=== PATIENT | male | born 1935 | race Caucasian/White ===

== ENCOUNTER → 2020-04-04 10:06 | Outpatient (BNVA) | payer MEDICARE, SELFPAY | PROVIDERS: PCP Internal Medicine Medical Oncology; Referring Provider Internal Medicine Medical Oncology; Visit Provider Internal Medicine Medical Oncology | DX: I48.20 Chronic atrial fibrillation, unspecified (principal); Z51.81 Encounter for therapeutic drug level monitoring; Z79.01 Long term (current) use of anticoagulants | CPT/HCPCS: 85610; 99211 ==

== ENCOUNTER → 2020-05-02 09:49 | Outpatient (BNVA) | payer MEDICARE, SELFPAY | PROVIDERS: PCP Internal Medicine Medical Oncology; Visit Provider Internal Medicine | DX: I48.20 Chronic atrial fibrillation, unspecified (principal); Z51.81 Encounter for therapeutic drug level monitoring; Z79.01 Long term (current) use of anticoagulants | CPT/HCPCS: 85610; 99211 ==

== ENCOUNTER → 2020-06-06 10:01 | Outpatient (BNVA) | payer MEDICARE, SELFPAY | PROVIDERS: PCP Internal Medicine Medical Oncology; Visit Provider Internal Medicine | DX: I48.20 Chronic atrial fibrillation, unspecified (principal); Z51.81 Encounter for therapeutic drug level monitoring; Z79.01 Long term (current) use of anticoagulants | CPT/HCPCS: 85610; 99211 ==

== ENCOUNTER → 2020-07-04 09:50 | Outpatient (BNVA) | payer MEDICARE, SELFPAY | PROVIDERS: PCP Internal Medicine Medical Oncology; Visit Provider Internal Medicine | DX: I48.20 Chronic atrial fibrillation, unspecified (principal); Z51.81 Encounter for therapeutic drug level monitoring; Z79.01 Long term (current) use of anticoagulants | CPT/HCPCS: 85610; 99211 ==

== ENCOUNTER → 2020-07-18 09:48 | Outpatient (BNVA) | payer MEDICARE, SELFPAY | PROVIDERS: PCP Internal Medicine Medical Oncology; Visit Provider Internal Medicine | DX: I48.20 Chronic atrial fibrillation, unspecified (principal); Z51.81 Encounter for therapeutic drug level monitoring; Z79.01 Long term (current) use of anticoagulants | CPT/HCPCS: 85610; 99211 ==

== ENCOUNTER → 2020-08-15 09:46 | Outpatient (BNVA) | payer MEDICARE, SELFPAY | PROVIDERS: PCP Internal Medicine Medical Oncology; Visit Provider Internal Medicine | DX: I48.20 Chronic atrial fibrillation, unspecified (principal); Z51.81 Encounter for therapeutic drug level monitoring; Z79.01 Long term (current) use of anticoagulants | CPT/HCPCS: 85610; 99211 ==

== ENCOUNTER → 2020-09-12 09:36 | Outpatient (BNVA) | payer MEDICARE, SELFPAY | PROVIDERS: PCP Internal Medicine Medical Oncology; Visit Provider Internal Medicine | DX: I48.20 Chronic atrial fibrillation, unspecified (principal); Z51.81 Encounter for therapeutic drug level monitoring; Z79.01 Long term (current) use of anticoagulants | CPT/HCPCS: 85610; 99211 ==

== ENCOUNTER → 2020-10-10 09:46 | Outpatient (BNVA) | payer MEDICARE, SELFPAY | PROVIDERS: PCP Internal Medicine Medical Oncology; Visit Provider Internal Medicine | DX: I48.20 Chronic atrial fibrillation, unspecified (principal); Z79.01 Long term (current) use of anticoagulants; Z51.81 Encounter for therapeutic drug level monitoring | CPT/HCPCS: 85610; 99211 ==

== ENCOUNTER → 2020-11-04 09:46 | Outpatient (REF) | payer MEDICARE, SELFPAY ==
--- NOTE | ~2020-11-04 | NM_ITS ---
EXAMINATION: NM BONE SCAN OF THE WHOLE BODY CLINICAL INFORMATION: Malignant neoplasm of prostate CA. Increased PSA. COMPARISON: Bone scan 12/04/2019 TECHNIQUE: Multiple gamma scintillation camera images of the whole body were performed 3 hours following the intravenous administration of 32 mCi Tc-99m MDP. FINDINGS: In the head, minimal focal activity seen in anterior right and left mandible likely related to dental disease. No additional abnormal activity seen in the skeleton neck. In the thoracic cage and upper extremities, unremarkable. In the spine, there is minimal focal activity seen in right T11-T12 facet joint, likely degenerative changes. No additional abnormal activity seen. There is minimal activity seen along the superior endplates of L5 and L3 vertebrae, likely endplate fractures or degenerative changes. In the pelvis, no abnormal activity seen. In the lower extremities, there are bilateral photopenic defects in the hip joints from hip prosthesis. There is minimal focal activity seen in the left medial and minimal right medial knee compartments, likely arthritis. No other definite bony abnormalities are noted. The urinary bladder and faint visualization of both kidneys are noted. [place] bone scan whole body IMPRESSION: No abnormal activity seen to suspect any metastatic bony process. Mild degenerative arthritic changes right T11-T12 facet joint and superior endplates of L5 and L3 vertebrae likely related to degenerative changes or mild compression fractures. These are stable to the previous bone scan 12/04/2019.
== END ==
LOC: HO.NUCMED 09:46
PROVIDERS: PCP Internal Medicine Medical Oncology; Visit Provider Internal Medicine Medical Oncology
DX: C61 Malignant neoplasm of prostate (principal); R97.20 Elevated prostate specific antigen [PSA]
CPT/HCPCS: 78306; A9503

== ENCOUNTER → 2020-11-07 09:46 | Outpatient (BNVA) | payer MEDICARE, SELFPAY | PROVIDERS: PCP Internal Medicine Medical Oncology; Visit Provider Internal Medicine | DX: I48.20 Chronic atrial fibrillation, unspecified (principal); Z79.01 Long term (current) use of anticoagulants; Z51.81 Encounter for therapeutic drug level monitoring | CPT/HCPCS: 85610; 99211 ==

== ENCOUNTER → 2020-11-28 10:06 | Outpatient (BNVA) | payer MEDICARE, SELFPAY | PROVIDERS: PCP Internal Medicine Medical Oncology; Visit Provider Internal Medicine | DX: I48.20 Chronic atrial fibrillation, unspecified (principal); Z51.81 Encounter for therapeutic drug level monitoring; Z79.01 Long term (current) use of anticoagulants | CPT/HCPCS: 85610; 99211 ==

== ENCOUNTER → 2020-12-26 09:41 | Outpatient (BNVA) | payer MEDICARE, SELFPAY | PROVIDERS: PCP Internal Medicine Medical Oncology; Visit Provider Internal Medicine | DX: I48.20 Chronic atrial fibrillation, unspecified (principal); Z51.81 Encounter for therapeutic drug level monitoring; Z79.01 Long term (current) use of anticoagulants | CPT/HCPCS: 85610; 99211 ==

== ENCOUNTER → 2021-01-23 09:44 | Outpatient (BNVA) | payer MEDICARE, SELFPAY | PROVIDERS: PCP Internal Medicine Medical Oncology; Visit Provider Internal Medicine | DX: I48.20 Chronic atrial fibrillation, unspecified (principal); Z51.81 Encounter for therapeutic drug level monitoring; Z79.01 Long term (current) use of anticoagulants | CPT/HCPCS: 85610; 99211 ==

== ENCOUNTER → 2021-02-20 09:44 | Outpatient (BNVA) | payer MEDICARE, SELFPAY | PROVIDERS: PCP Internal Medicine Medical Oncology; Visit Provider Internal Medicine | DX: I48.20 Chronic atrial fibrillation, unspecified (principal); Z51.81 Encounter for therapeutic drug level monitoring; Z79.01 Long term (current) use of anticoagulants | CPT/HCPCS: 85610; 99211 ==

== ENCOUNTER → 2021-03-20 09:45 | Outpatient (BNVA) | payer MEDICARE, SELFPAY | PROVIDERS: PCP Internal Medicine Medical Oncology; Visit Provider Internal Medicine | DX: I48.20 Chronic atrial fibrillation, unspecified (principal); Z51.81 Encounter for therapeutic drug level monitoring; Z79.01 Long term (current) use of anticoagulants | CPT/HCPCS: 85610; 99211 ==

== ENCOUNTER → 2021-04-17 09:57 | Outpatient (BNVA) | payer MEDICARE, SELFPAY | PROVIDERS: PCP Internal Medicine Medical Oncology; Visit Provider Internal Medicine | DX: I48.20 Chronic atrial fibrillation, unspecified (principal); Z51.81 Encounter for therapeutic drug level monitoring; Z79.01 Long term (current) use of anticoagulants | CPT/HCPCS: 85610; 99211 ==

== ENCOUNTER → 2021-05-15 09:56 | Outpatient (BNVA) | payer MEDICARE, SELFPAY | PROVIDERS: PCP Internal Medicine Medical Oncology; Visit Provider Internal Medicine | DX: I48.20 Chronic atrial fibrillation, unspecified (principal); Z51.81 Encounter for therapeutic drug level monitoring; Z79.01 Long term (current) use of anticoagulants | CPT/HCPCS: 85610; 99211 ==

== ENCOUNTER → 2021-06-12 09:54 | Outpatient (BNVA) | payer MEDICARE, SELFPAY | PROVIDERS: PCP Internal Medicine Medical Oncology; Visit Provider Internal Medicine | DX: I48.20 Chronic atrial fibrillation, unspecified (principal); Z51.81 Encounter for therapeutic drug level monitoring; Z79.01 Long term (current) use of anticoagulants | CPT/HCPCS: 85610; 99211 ==

== ENCOUNTER → 2021-07-10 09:49 | Outpatient (BNVA) | payer MEDICARE, SELFPAY | PROVIDERS: PCP Internal Medicine Medical Oncology; Visit Provider Internal Medicine | DX: I48.20 Chronic atrial fibrillation, unspecified (principal); Z51.81 Encounter for therapeutic drug level monitoring; Z79.01 Long term (current) use of anticoagulants | CPT/HCPCS: 85610; 99211 ==

== ENCOUNTER → 2021-08-07 09:47 | Outpatient (BNVA) | payer MEDICARE, SELFPAY | PROVIDERS: PCP Internal Medicine Medical Oncology; Visit Provider Internal Medicine | DX: I48.20 Chronic atrial fibrillation, unspecified (principal); Z51.81 Encounter for therapeutic drug level monitoring; Z79.01 Long term (current) use of anticoagulants | CPT/HCPCS: 85610; 99211 ==

== ENCOUNTER → 2021-09-04 09:49 | Outpatient (BNVA) | payer MEDICARE, SELFPAY | PROVIDERS: PCP Internal Medicine Medical Oncology; Visit Provider Internal Medicine | DX: I48.20 Chronic atrial fibrillation, unspecified (principal); Z51.81 Encounter for therapeutic drug level monitoring; Z79.01 Long term (current) use of anticoagulants | CPT/HCPCS: 85610; 99211 ==

== ENCOUNTER → 2021-10-09 09:56 | Outpatient (BNVA) | payer MEDICARE, SELFPAY | PROVIDERS: PCP Internal Medicine Medical Oncology; Visit Provider Internal Medicine | DX: I48.20 Chronic atrial fibrillation, unspecified (principal); Z51.81 Encounter for therapeutic drug level monitoring; Z79.01 Long term (current) use of anticoagulants | CPT/HCPCS: 85610; 99211 ==

== ENCOUNTER → 2021-11-06 09:57 | Outpatient (BNVA) | payer MEDICARE, SELFPAY | PROVIDERS: PCP Internal Medicine Medical Oncology; Visit Provider Internal Medicine | DX: I48.20 Chronic atrial fibrillation, unspecified (principal); Z79.01 Long term (current) use of anticoagulants; Z51.81 Encounter for therapeutic drug level monitoring | CPT/HCPCS: 85610; 99211 ==

== ENCOUNTER → 2021-11-10 10:40 | Outpatient (REF) | payer MEDICARE, SELFPAY ==
--- NOTE | ~2021-11-10 | NM_ITS ---
EXAMINATION: NM BONE SCAN OF THE WHOLE BODY CLINICAL INFORMATION: Prostate cancer. COMPARISON: The previous bone scan dated 11/04/2020 is available for comparison. No recent radiographs are available for comparison. TECHNIQUE: Multiple gamma scintillation camera images of the whole body were performed 2.75 hours following the intravenous administration of 32 mCi Tc-99m MDP. FINDINGS: In the head, no significant abnormalities are present. In the thoracic cage and upper extremities, there is minimally increased activity in the sternoclavicular joints bilaterally. A small photopenic defect overlying the anterolateral aspect of the left second interspace is noted probably from a pacemaker or other hardware. In the spine, there is minimally increased activity in the lumbar spine at the L2-L3 level and L5-S1 level involving the full width of the spine at these levels. There is minimally increased activity in the right costovertebral junction of T12. In the pelvis, no significant abnormalities are present. 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 There is minimally increased activity just barely visible adjacent to the femoral stems bilaterally without a suspicious focal component. There is mildly increased activity diffusely in both knees, more prominently on the right. There is mildly increased activity in the mid left foot. No other definite bony abnormalities are noted. The urinary bladder and faint visualization of both kidneys are noted. The right kidney is significantly smaller in size than the left. Compared to the previous study dated 11/04/2020, the abnormalities in the right knee are new and there are new abnormalities in the patellar compartment of the left knee. The remainder the scan is not significantly changed. [place] bone scan whole body IMPRESSION: A few mild nonspecific abnormalities are noted as described above and these are all likely arthritic or traumatic in etiology. None of these abnormalities is strongly suspicious for metastatic disease.
== END ==
LOC: HO.NUCMED 10:40
PROVIDERS: Visit Provider Internal Medicine Medical Oncology
DX: N64.0 Fissure and fistula of nipple (principal); C61 Malignant neoplasm of prostate
CPT/HCPCS: 78306; A9503

== ENCOUNTER → 2021-12-04 09:50 | Outpatient (BNVA) | payer MEDICARE, SELFPAY | PROVIDERS: PCP Internal Medicine Medical Oncology; Visit Provider Internal Medicine | DX: I48.20 Chronic atrial fibrillation, unspecified (principal); Z79.01 Long term (current) use of anticoagulants; Z51.81 Encounter for therapeutic drug level monitoring | CPT/HCPCS: 85610; 99211 ==

== ENCOUNTER → 2022-01-08 10:04 | Outpatient (BNVA) | payer MEDICARE, SELFPAY | PROVIDERS: PCP Internal Medicine Medical Oncology; Visit Provider Internal Medicine | DX: I48.20 Chronic atrial fibrillation, unspecified (principal); Z51.81 Encounter for therapeutic drug level monitoring; Z79.01 Long term (current) use of anticoagulants | CPT/HCPCS: 85610; 99211 ==

== ENCOUNTER → 2022-02-05 09:45 | Outpatient (BNVA) | payer MEDICARE, SELFPAY | PROVIDERS: PCP Internal Medicine Medical Oncology; Visit Provider Internal Medicine | DX: I48.20 Chronic atrial fibrillation, unspecified (principal); Z79.01 Long term (current) use of anticoagulants; Z51.81 Encounter for therapeutic drug level monitoring | CPT/HCPCS: 85610; 99211 ==

== ENCOUNTER → 2022-03-05 09:45 | Outpatient (BNVA) | payer MEDICARE, SELFPAY | PROVIDERS: PCP Internal Medicine Medical Oncology; Visit Provider Internal Medicine | DX: I48.20 Chronic atrial fibrillation, unspecified (principal); Z51.81 Encounter for therapeutic drug level monitoring; Z79.01 Long term (current) use of anticoagulants | CPT/HCPCS: 85610; 99211 ==

== ENCOUNTER → 2022-04-09 09:52 | Outpatient (BNVA) | payer MEDICARE, SELFPAY | PROVIDERS: PCP Internal Medicine Medical Oncology; Visit Provider Internal Medicine | DX: I48.20 Chronic atrial fibrillation, unspecified (principal); Z51.81 Encounter for therapeutic drug level monitoring; Z79.01 Long term (current) use of anticoagulants | CPT/HCPCS: 85610; 99211 ==

== ENCOUNTER → 2022-05-07 09:41 | Outpatient (BNVA) | payer MEDICARE, SELFPAY | PROVIDERS: PCP Internal Medicine Medical Oncology; Visit Provider Internal Medicine | DX: I48.20 Chronic atrial fibrillation, unspecified (principal); Z79.01 Long term (current) use of anticoagulants; Z51.81 Encounter for therapeutic drug level monitoring | CPT/HCPCS: 85610; 99211 ==

== ENCOUNTER → 2022-05-27 10:19 | Outpatient (BNVA) | payer MEDICARE, SELFPAY | PROVIDERS: PCP Internal Medicine Medical Oncology; Visit Provider Internal Medicine | DX: I48.20 Chronic atrial fibrillation, unspecified (principal); Z79.01 Long term (current) use of anticoagulants; Z51.81 Encounter for therapeutic drug level monitoring | CPT/HCPCS: 85610; 99211 ==

== ENCOUNTER → 2022-06-25 09:51 | Outpatient (BNVA) | payer MEDICARE, SELFPAY | PROVIDERS: PCP Internal Medicine Medical Oncology; Visit Provider Internal Medicine | DX: I48.20 Chronic atrial fibrillation, unspecified (principal); Z79.01 Long term (current) use of anticoagulants; Z51.81 Encounter for therapeutic drug level monitoring | CPT/HCPCS: 85610; 99211 ==

== ENCOUNTER → 2022-07-07 10:51 | Outpatient (REF) | payer MEDICARE, SELFPAY ==
--- NOTE | ~2022-07-07 | NM_ITS ---
EXAMINATION: NM BONE SCAN OF THE WHOLE BODY CLINICAL INFORMATION: Malignant neoplasm of prostate. COMPARISON: Several previous bone scans are available for comparison, the most recent dated 11/10/2021. No recent radiographs are available for comparison. TECHNIQUE: Multiple gamma scintillation camera images of the whole body were performed 3 hours following the intravenous administration of 25 mCi Tc-99m MDP. FINDINGS: In the head, no significant abnormalities are present. In the thoracic cage and upper extremities, there is minimally increased activity in the sternoclavicular joints bilaterally. There are also mild foci of increased activity in the glenohumeral articulations bilaterally and in the lateral subacromial region of the right humeral head, all likely degenerative or arthritic. An attenuation artifact overlying the anterolateral aspect of the left second interspace is likely due to to a pacemaker. In the spine, there is mildly increased activity anteriorly in the lower cervical spine. There are additional foci of mildly increased activity across the L3 and L5 vertebra. In the pelvis, no significant abnormalities are present. In the lower extremities, photopenic defects from bilateral well-healed total hip prostheses are noted. There is minimally increased activity present adjacent to the femoral stem of the right hip prosthesis. There is a mild diffuse increase in activity in both knees and there foci of mildly increased activity in the mid left foot. No other definite bony abnormalities are noted. The urinary bladder and faint visualization of both kidneys are noted. Compared to the previous bone scan dated 11/10/2021, there has not been a significant change. [place] bone scan whole body IMPRESSION: A few stable mild nonspecific abnormalities are noted as described above and these are all likely arthritic or traumatic in etiology. None of these abnormalities is strongly suspicious for metastatic disease.
== END ==
LOC: HO.NUCMED 10:51
PROVIDERS: Visit Provider Internal Medicine Medical Oncology
DX: C61 Malignant neoplasm of prostate (principal)
CPT/HCPCS: 78306; A9503

== ENCOUNTER → 2022-07-23 09:37 | Outpatient (BNVA) | payer MEDICARE, SELFPAY | PROVIDERS: PCP Internal Medicine Medical Oncology; Visit Provider Internal Medicine | DX: I48.20 Chronic atrial fibrillation, unspecified (principal); Z79.01 Long term (current) use of anticoagulants; Z51.81 Encounter for therapeutic drug level monitoring | CPT/HCPCS: 85610; 99211 ==

== ENCOUNTER → 2022-08-20 09:47 | Outpatient (BNVA) | payer MEDICARE, SELFPAY | PROVIDERS: PCP Internal Medicine Medical Oncology; Visit Provider Internal Medicine | DX: I48.20 Chronic atrial fibrillation, unspecified (principal); Z51.81 Encounter for therapeutic drug level monitoring; Z79.01 Long term (current) use of anticoagulants | CPT/HCPCS: 85610; 99211 ==

== ENCOUNTER → 2022-09-03 09:49 | Outpatient (BNVA) | payer MEDICARE, SELFPAY | PROVIDERS: PCP Internal Medicine Medical Oncology; Visit Provider Internal Medicine | DX: I48.20 Chronic atrial fibrillation, unspecified (principal); Z79.01 Long term (current) use of anticoagulants; Z51.81 Encounter for therapeutic drug level monitoring | CPT/HCPCS: 85610; 99211 ==

== ENCOUNTER → 2022-09-17 09:46 | Outpatient (BNVA) | payer MEDICARE, SELFPAY | PROVIDERS: PCP Internal Medicine Medical Oncology; Visit Provider Internal Medicine | DX: I48.20 Chronic atrial fibrillation, unspecified (principal); Z79.01 Long term (current) use of anticoagulants; Z51.81 Encounter for therapeutic drug level monitoring | CPT/HCPCS: 85610; 99211 ==

== ENCOUNTER → 2022-10-08 09:51 | Outpatient (BNVA) | payer MEDICARE, SELFPAY | PROVIDERS: PCP Internal Medicine Medical Oncology; Visit Provider Internal Medicine | DX: I48.20 Chronic atrial fibrillation, unspecified (principal); Z79.01 Long term (current) use of anticoagulants; Z51.81 Encounter for therapeutic drug level monitoring | CPT/HCPCS: 85610; 99211 ==

== ENCOUNTER 2022-11-05 09:39 | Outpatient (REF) | payer MEDICARE, SELFPAY ==
[2022-11-05 10:32] LABS: Prothrombin Time 63.2 SEC (10.0-13.1)
[2022-11-05 10:35] LABS: INTERNATIONAL NORM RATIO 5.1 (0.9-1.1)
== END 2022-11-05 09:40 | disposition home or self-care (01) ==
LOC: HO.LAB 09:39
PROVIDERS: PCP Internal Medicine Medical Oncology; Visit Provider Internal Medicine
DX: I48.20 Chronic atrial fibrillation, unspecified (principal); Z51.81 Encounter for therapeutic drug level monitoring; Z79.01 Long term (current) use of anticoagulants
CPT/HCPCS: 36415; 85610; 99212

== ENCOUNTER → 2022-11-09 10:09 | Outpatient (BNVA) | payer MEDICARE, SELFPAY | PROVIDERS: PCP Internal Medicine Medical Oncology; Visit Provider Internal Medicine | DX: I48.20 Chronic atrial fibrillation, unspecified (principal); Z79.01 Long term (current) use of anticoagulants; Z51.81 Encounter for therapeutic drug level monitoring | CPT/HCPCS: 85610; 99211 ==

== ENCOUNTER → 2022-11-19 10:05 | Outpatient (BNVA) | payer MEDICARE, SELFPAY | PROVIDERS: PCP Internal Medicine Medical Oncology; Visit Provider Internal Medicine | DX: I48.20 Chronic atrial fibrillation, unspecified (principal); Z79.01 Long term (current) use of anticoagulants; Z51.81 Encounter for therapeutic drug level monitoring | CPT/HCPCS: 85610; 99211 ==

== ENCOUNTER → 2022-12-03 09:47 | Outpatient (BNVA) | payer MEDICARE, SELFPAY | PROVIDERS: PCP Internal Medicine Medical Oncology; Visit Provider Internal Medicine | DX: I48.20 Chronic atrial fibrillation, unspecified (principal); Z79.01 Long term (current) use of anticoagulants; Z51.81 Encounter for therapeutic drug level monitoring | CPT/HCPCS: 85610; 99211 ==

== ENCOUNTER → 2022-12-17 09:47 | Outpatient (BNVA) | payer MEDICARE, SELFPAY | PROVIDERS: PCP Internal Medicine Medical Oncology; Visit Provider Internal Medicine | DX: I48.20 Chronic atrial fibrillation, unspecified (principal); Z79.01 Long term (current) use of anticoagulants; Z51.81 Encounter for therapeutic drug level monitoring | CPT/HCPCS: 85610; 99211 ==

== ENCOUNTER → 2023-01-07 09:43 | Outpatient (BNVA) | payer MEDICARE, SELFPAY | PROVIDERS: PCP Internal Medicine Medical Oncology; Visit Provider Internal Medicine | DX: I48.20 Chronic atrial fibrillation, unspecified (principal); Z79.01 Long term (current) use of anticoagulants; Z51.81 Encounter for therapeutic drug level monitoring | CPT/HCPCS: 85610; 99211 ==

== ENCOUNTER 2023-02-04 09:55 | Outpatient (AMB) | payer MEDICARE, SELFPAY ==
--- NOTE | 2023-02-04 09:59 | MHC.OFFVISCO ---
Intake Intake Visit Reasons: Anticoagulation Allergies No Known Allergies Allergy (Verified 02/04/23 09:55) Medication List - Last Reconciled 02/04/23 by Susana Pantoja RN amoxicillin 2,000 mg PO aspirin 81 mg PO DAILY finasteride 5 mg PO DAILY furosemide 20 mg PO DAILY leuprolide (3 month) (Eligard) 22.5 mg subcut [id number] losartan 25 mg PO DAILY metoprolol succinate ER 75 mg PO DAILY omeprazole 20 mg PO DAILY potassium chloride ER 10 mEq PO DAILY pravastatin 10 mg PO DAILY warfarin 2.5 mg See Protocol PO DAILY Nursing Note INR: 2.1-in therapeutic range Medications and supplements reviewed- no changes No changes in health, diet, medications, or supplements, Denies any signs and symptoms of bleeding or bruising or clotting. Bleeding, bruising, clotting discussed Nutritional guidance given Dose: 2.5mg x 7 F/U INR: 4 weeks Patient verbalizes understanding of instructions given Coding Level of Care Code Est Patient Level 1 Diagnoses Current use of anticoagulant therapy Z79.01 Assessment & Plan Assessment & Plan (1) Current use of anticoagulant therapy: Code(s): Z79.01 - jail (current) use of anticoagulants Category: Medical
[2023-02-04 10:00] LABS: Prothrombin Time Whole Bld POC 25.2 sec (11.1-13.5); ~PT, ~INR - Anti Coag Clinic 2.1 (0.9-1.1)
== END 2023-02-04 10:24 | disposition home or self-care (01) ==
LOC: HO.ACS 09:55
PROVIDERS: PCP Internal Medicine Medical Oncology; Visit Provider Internal Medicine
DX: Z79.01 Long term (current) use of anticoagulants (principal)

== ENCOUNTER → 2023-02-04 09:55 | Outpatient (BNVA) | payer MEDICARE, SELFPAY | PROVIDERS: PCP Internal Medicine Medical Oncology; Visit Provider Internal Medicine | DX: I48.20 Chronic atrial fibrillation, unspecified (principal); Z79.01 Long term (current) use of anticoagulants; Z51.81 Encounter for therapeutic drug level monitoring | CPT/HCPCS: 85610; 99211 ==

== ENCOUNTER 2023-03-04 09:39 | Outpatient (AMB) | payer MEDICARE, SELFPAY ==
--- NOTE | 2023-03-04 09:50 | MHC.OFFVISCO ---
Intake Intake Visit Reasons: Anticoagulation Allergies No Known Allergies Allergy (Verified 03/04/23 09:46) Medication List - Last Reconciled 03/04/23 by Susana Pantoja RN amoxicillin 2,000 mg PO aspirin 81 mg PO DAILY finasteride 5 mg PO DAILY furosemide 20 mg PO DAILY leuprolide (3 month) (Eligard) 22.5 mg subcut [id number] losartan 25 mg PO DAILY metoprolol succinate ER 75 mg PO DAILY omeprazole 20 mg PO DAILY potassium chloride ER 10 mEq PO DAILY pravastatin 10 mg PO DAILY warfarin 2.5 mg See Protocol PO DAILY Nursing Note INR: 2.3- in therapeutic range Medications and supplements reviewed- no changes No changes in health, diet, medications, or supplements, Denies any signs and symptoms of bleeding or bruising or clotting. 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
[2023-03-04 09:51] LABS: Prothrombin Time Whole Bld POC 27.4 sec (11.1-13.5); ~PT, ~INR - Anti Coag Clinic 2.3 (0.9-1.1)
== END 2023-03-04 09:55 | disposition home or self-care (01) ==
LOC: HO.ACS 09:39
PROVIDERS: PCP Internal Medicine Medical Oncology; Visit Provider Internal Medicine
DX: Z79.01 Long term (current) use of anticoagulants (principal)

== ENCOUNTER → 2023-03-04 09:39 | Outpatient (BNVA) | payer MEDICARE, SELFPAY | PROVIDERS: PCP Internal Medicine Medical Oncology; Visit Provider Internal Medicine | DX: I48.20 Chronic atrial fibrillation, unspecified (principal); Z79.01 Long term (current) use of anticoagulants; Z51.81 Encounter for therapeutic drug level monitoring | CPT/HCPCS: 85610; 99211 ==

== ENCOUNTER 2023-04-06 08:19 | Outpatient (AMB) | payer MEDICARE, SELFPAY ==
--- NOTE | 2023-04-06 08:37 | MHC.OFFVISCO ---
Intake Intake Visit Reasons: Anticoagulation Allergies No Known Allergies Allergy (Verified 04/06/23 08:22) Medication List - Last Reconciled 04/06/23 by Leonor Alatorre RN amoxicillin 2,000 mg PO aspirin 81 mg PO DAILY finasteride 5 mg PO DAILY furosemide 20 mg PO DAILY leuprolide (3 month) (Eligard) 22.5 mg subcut [id number] losartan 25 mg PO DAILY metoprolol succinate ER 75 mg PO DAILY omeprazole 20 mg PO DAILY potassium chloride ER 10 mEq PO DAILY pravastatin 10 mg PO DAILY warfarin 2.5 mg See Protocol PO DAILY Nursing Note Amb to [facility], early for 1130 appointment sts he initially didn't think he would be able to get here for the earlier appointment with the smart catheter but was able to take my shower and get here pt hospitalized last week at [facility] for dehydration, urinary incontinence and retention, and nose bleed. Pt sts his INR was 11 when he was in ED, then down to 9. Sts he was not sleeping for a few days before being hospitalized I was so worried about being incontinent DC from hospital 04/03 with Smart cath and to resume warfarin at usual dosing, sts he might have received some warfarin on Wednesday but not sure (INR was 1.6 04/02 per DC summary pending INR 04/03) sts he started warfarin on Wednesday taking 2.5mg, no real greens Medications and supplements reviewed, no other med changes No other changes in health, diet, medications, or supplements Denies any unusual signs and symptoms of bruising, bleeding, no further nose bleeds, FC drg clear yellow no bleeding Denies any new Chest pain, SOB, or clotting INR: 1.7 below therapeutic range Nutritional guidance given: no greens till Wednesday or Wednesday then balance greens and reds in diet Dose: take 5mg warfarin today then continue usual dosing; 2.5mg daily F/U INR: 1 week Patient verbalizes understanding of instructions given with accurate read back/ teach back of dosing Coding Level of Care Code Est Patient Level 1 Diagnoses Current use of anticoagulant therapy Z79.01 Time Spent (min) 20 Results AMB INR Fingerstick AMB INR Fingerstick 1.7 Last Edit by Leonor Alatorre RN on 04/06/23 08:32 interface failure Assessment & Plan Assessment & Plan (1) Current use of anticoagulant therapy: Code(s): Z79.01 - half-way (current) use of anticoagulants Category: Medical
[2023-04-06 11:39] LABS: Prothrombin Time Whole Bld POC 20.7 sec (11.1-13.5); ~PT, ~INR - Anti Coag Clinic 1.7 (0.9-1.1)
== END 2023-04-06 09:56 | disposition home or self-care (01) ==
LOC: HO.ACS 08:19
PROVIDERS: PCP Internal Medicine Medical Oncology; Visit Provider Internal Medicine
DX: Z79.01 Long term (current) use of anticoagulants (principal)

== ENCOUNTER → 2023-04-06 08:19 | Outpatient (BNVA) | payer MEDICARE, SELFPAY | PROVIDERS: PCP Internal Medicine Medical Oncology; Visit Provider Internal Medicine | DX: I48.20 Chronic atrial fibrillation, unspecified (principal); Z51.81 Encounter for therapeutic drug level monitoring; Z79.01 Long term (current) use of anticoagulants | CPT/HCPCS: 85610; 99211 ==

== ENCOUNTER 2023-04-13 08:34 | Outpatient (AMB) | payer MEDICARE, SELFPAY ==
--- NOTE | 2023-04-13 08:47 | MHC.OFFVISCO ---
Intake Intake Visit Reasons: Anticoagulation Allergies No Known Allergies Allergy (Verified 04/13/23 08:39) Medication List - Last Reconciled 04/13/23 by Leonor Alatorre, RN amoxicillin 2,000 mg PO aspirin 81 mg PO DAILY finasteride 5 mg PO DAILY furosemide 20 mg PO DAILY leuprolide (3 month) (Eligard) 22.5 mg subcut [id number] losartan 25 mg PO DAILY metoprolol succinate ER 75 mg PO DAILY omeprazole 20 mg PO DAILY potassium chloride ER 10 mEq PO DAILY pravastatin 10 mg PO DAILY warfarin 2.5 mg See Protocol PO DAILY Nursing Note Amb to ACS feeling well, smart cath remains, sts he has not heard back from urology, saw PCP last week Medications and supplements reviewed No changes in health, diet, medications, or supplements Denies any unusual signs and symptoms of bruising, bleeding, sts F/C draining clear yellow urine, no bleeding Denies any new Chest pain, SOB, or clotting INR: 3.0 now in therapeutic range Nutritional guidance given: balance greens and reds in diet, be consistent Dose: continue usual dosing;2.5mg daily F/U INR: 2 weeks Patient verbalizes understanding of instructions given with accurate read back/ teach back of dosing and to call us if any new medications Coding Level of Care Code Est Patient Level 1 Diagnoses Current use of anticoagulant therapy Z79.01 Time Spent (min) 15 Results AMB INR Fingerstick AMB INR Fingerstick 3.0 Last Edit by Leonor Alatorre RN on 04/13/23 08:46 interface failure Assessment & Plan Assessment & Plan (1) Current use of anticoagulant therapy: Code(s): 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
== END 2023-04-13 08:51 | disposition home or self-care (01) ==
LOC: HO.ACS 08:34
PROVIDERS: PCP Internal Medicine Medical Oncology; Visit Provider Internal Medicine
DX: Z79.01 Long term (current) use of anticoagulants (principal)

== ENCOUNTER → 2023-04-13 08:34 | Outpatient (BNVA) | payer MEDICARE, SELFPAY | PROVIDERS: PCP Internal Medicine Medical Oncology; Visit Provider Internal Medicine | DX: I48.20 Chronic atrial fibrillation, unspecified (principal); Z79.01 Long term (current) use of anticoagulants; Z51.81 Encounter for therapeutic drug level monitoring | CPT/HCPCS: 85610; 99211 ==

== ENCOUNTER 2023-04-29 09:59 | Outpatient (AMB) | payer MEDICARE, SELFPAY ==
[2023-04-29 10:07] LABS: Prothrombin Time Whole Bld POC 65.4 sec (11.1-13.5); ~PT, ~INR - Anti Coag Clinic 5.5 (0.9-1.1)
--- NOTE | 2023-04-29 10:14 | MHC.OFFVISCO ---
Intake Intake Visit Reasons: Anticoagulation Allergies No Known Allergies Allergy (Verified 04/29/23 10:00) Medication List - Last Reconciled 04/29/23 by Leonor Alatorre, RN amoxicillin 2,000 mg PO aspirin 81 mg PO DAILY finasteride 5 mg PO DAILY furosemide 20 mg PO DAILY leuprolide (3 month) (Eligard) 22.5 mg subcut [id number] losartan 25 mg PO DAILY metoprolol succinate ER 75 mg PO DAILY omeprazole 20 mg PO DAILY potassium chloride ER 10 mEq PO DAILY pravastatin 10 mg PO DAILY warfarin 2.5 mg See Protocol PO DAILY Nursing Note Amb to [facility] feeling ok sts he thinks number may be off today Medications and supplements reviewed No changes in health, diet, medications, or supplements, sts diet has been a little different lately, less of usual greens, also had Flu vaccine 04/13, no longer has F/C denies any issues or concerns with that Denies any unusual signs and symptoms of bruising, bleeding Denies any new Chest pain, SOB, or clotting INR: 5.5 above therapeutic range, declines lab correlation Nutritional guidance given: increase greens next couple days but don't overdo cooked spinach then balance greens and reds in diet, no ETOH Dose: hold warfarin today and tomorrow then resume usual dosing 2.5mg daily dosing Wednesday F/U INR: Thursday 05/03 Patient verbalizes understanding of instructions given with accurate read back/ teach back of dosing Call to Dr Perez office unable to reach will try later Coding Level of Care Code Est Patient Level 1 Diagnoses Current use of anticoagulant therapy Z79.01 Time Spent (min) 20 Assessment & Plan Assessment & Plan (1) Current use of anticoagulant therapy: Code(s): 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
== END 2023-04-29 11:21 | disposition home or self-care (01) ==
LOC: HO.ACS 09:59
PROVIDERS: PCP Internal Medicine Medical Oncology; Visit Provider Internal Medicine
DX: Z79.01 Long term (current) use of anticoagulants (principal)

== ENCOUNTER → 2023-04-29 09:59 | Outpatient (BNVA) | payer MEDICARE, SELFPAY | PROVIDERS: PCP Internal Medicine Medical Oncology; Visit Provider Internal Medicine | DX: I48.20 Chronic atrial fibrillation, unspecified (principal); Z79.01 Long term (current) use of anticoagulants; Z51.81 Encounter for therapeutic drug level monitoring | CPT/HCPCS: 85610; 99211 ==

== ENCOUNTER 2023-05-03 10:16 | Outpatient (AMB) | payer MEDICARE, SELFPAY ==
[2023-05-03 10:24] LABS: Prothrombin Time Whole Bld POC 39.3 sec (11.1-13.5); ~PT, ~INR - Anti Coag Clinic 3.3 (0.9-1.1)
--- NOTE | 2023-05-03 10:32 | MHC.OFFVISCO ---
Intake Intake Visit Reasons: Anticoagulation Allergies No Known Allergies Allergy (Verified 05/03/23 10:17) Medication List - Last Reconciled 05/03/23 by Barbara Donaldson RN amoxicillin 2,000 mg PO aspirin 81 mg PO DAILY finasteride 5 mg PO DAILY furosemide 20 mg PO DAILY leuprolide (3 month) (Eligard) 22.5 mg subcut [id number] losartan 25 mg PO DAILY metoprolol succinate ER 75 mg PO DAILY omeprazole 20 mg PO DAILY potassium chloride ER 10 mEq PO DAILY pravastatin 10 mg PO DAILY warfarin 2.5 mg See Protocol PO DAILY Nursing Note INR 3.3 out of therapeutic range Medications and supplements reviewed Patient status: FUROSEMIDE WAS INCREASED TO 40MG X 3 DAYS THEN RESUME 20MG DAILY Medications or supplements: JUST FUROSEMIDE Diet: FAIR - DECREASED Denies any signs and symptoms of bleeding or clotting or unusual bruising Bleeding, bruising, clotting discussed Nutritional guidance given: REVIEW FOOD LIST WEEKLY , KEEP UP WEEKLY GREENS AND PROTEIN Dose: DECREASE SLIGHTLY DUE TO DECREASED APPETITE 1.25MG X 1 DAY/ 2.5MG X 6 DAYS F/U INR Date: 1 WEEK ?? Patient verbalizing understanding of instructions given. Coding Level of Care Code Est Patient Level 1 Diagnoses Current use of anticoagulant therapy Z79.01 Assessment & Plan Assessment & Plan (1) Current use of anticoagulant therapy: Code(s): Z79.01 - USP (current) use of anticoagulants Category: Medical
== END 2023-05-03 10:36 | disposition home or self-care (01) ==
LOC: HO.ACS 10:17
PROVIDERS: PCP Internal Medicine Medical Oncology; Visit Provider Internal Medicine
DX: Z79.01 Long term (current) use of anticoagulants (principal)

== ENCOUNTER → 2023-05-03 10:16 | Outpatient (BNVA) | payer MEDICARE, SELFPAY | PROVIDERS: PCP Internal Medicine Medical Oncology; Visit Provider Internal Medicine | DX: I48.20 Chronic atrial fibrillation, unspecified (principal); Z79.01 Long term (current) use of anticoagulants; Z51.81 Encounter for therapeutic drug level monitoring | CPT/HCPCS: 85610; 99211 ==

== ENCOUNTER 2023-05-10 10:18 | Outpatient (AMB) | payer MEDICARE, SELFPAY ==
[2023-05-10 10:25] LABS: Prothrombin Time Whole Bld POC 36.3 sec (11.1-13.5)
--- NOTE | 2023-05-10 10:30 | MHC.OFFVISCO ---
Intake Intake Visit Reasons: Anticoagulation Allergies No Known Allergies Allergy (Verified 05/10/23 10:19) Medication List - Last Reconciled 05/10/23 by Leonor Alatorre, RN amoxicillin 2,000 mg PO aspirin 81 mg PO DAILY finasteride 5 mg PO DAILY furosemide 20 mg PO DAILY leuprolide (3 month) (Eligard) 22.5 mg subcut [id number] losartan 25 mg PO DAILY metoprolol succinate ER 75 mg PO DAILY omeprazole 20 mg PO DAILY potassium chloride ER 10 mEq PO DAILY pravastatin 10 mg PO DAILY warfarin 2.5 mg See Protocol PO DAILY Nursing Note Amb to [facility] feeling, ok Medications and supplements reviewed No changes in health, diet, medications, or supplements (has less of an appetite) Denies any unusual signs and symptoms of bruising, bleeding Denies any new Chest pain, SOB, or clotting INR: 3.0 in therapeutic range Nutritional guidance given: balance greens and reds in diet, can start protein drinks, Boost, carnation instant breakfast, Ensure, if decreased appetite Dose: continue new dosing;1.2mg on Sundays and 2.5mg all other days F/U INR: 2 weeks Patient verbalizes understanding of instructions given with accurate read back/ teach back of dosing Coding Level of Care Code Est Patient Level 1 Diagnoses Current use of anticoagulant therapy Z79.01 Time Spent (min) 15 Assessment & Plan Assessment & Plan (1) Current use of anticoagulant therapy: Code(s): 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
== END 2023-05-10 10:37 | disposition home or self-care (01) ==
LOC: HO.ACS 10:18
PROVIDERS: PCP Internal Medicine Medical Oncology; Visit Provider Internal Medicine
DX: Z79.01 Long term (current) use of anticoagulants (principal)

== ENCOUNTER → 2023-05-10 10:18 | Outpatient (BNVA) | payer MEDICARE, SELFPAY | PROVIDERS: PCP Internal Medicine Medical Oncology; Visit Provider Internal Medicine | DX: I48.20 Chronic atrial fibrillation, unspecified (principal); Z79.01 Long term (current) use of anticoagulants; Z51.81 Encounter for therapeutic drug level monitoring | CPT/HCPCS: 85610; 99211 ==

== ENCOUNTER 2023-05-24 10:04 | Outpatient (AMB) | payer MEDICARE, SELFPAY ==
[2023-05-24 10:34] LABS: Prothrombin Time Whole Bld POC 43.3 sec (11.1-13.5); ~PT, ~INR - Anti Coag Clinic 3.6 (0.9-1.1)
--- NOTE | 2023-05-24 10:40 | MHC.OFFVISCO ---
Intake Intake Visit Reasons: Anticoagulation Allergies No Known Allergies Allergy (Verified 05/24/23 10:27) Medication List - Last Reconciled 05/24/23 by Leonor Alatorre RN amoxicillin 2,000 mg PO aspirin 81 mg PO DAILY finasteride 5 mg PO DAILY furosemide 20 mg PO DAILY leuprolide (3 month) (Eligard) 22.5 mg subcut [id number] losartan 25 mg PO DAILY metoprolol succinate ER 75 mg PO DAILY omeprazole 20 mg PO DAILY potassium chloride ER 10 mEq PO DAILY pravastatin 10 mg PO DAILY warfarin 2.5 mg See Protocol PO DAILY Nursing Note Amb to [facility] feeling ok Medications and supplements reviewed, sts started daily Boost, chocolate at lunch time No other changes in health, diet, medications, or supplements Denies any unusual signs and symptoms of bruising, bleeding Denies any new Chest pain, SOB, or clotting INR: 3.6 above therapeutic range Nutritional guidance given: continue daily Boost and balance greens and reds in diet, watch the red raisers over the Dose: hold warfarin today then continue usual dosing;1.25mg x 1 day and 2.5mg x 6 days F/U INR:2 weeks booked 06/03 may need weekly dosing decrease Patient verbalizes understanding of instructions given with accurate read back/ teach back of dosing Questionnaires HAS-BLED Does the patient had uncontrolled Hypertension?: Yes Does the patient have renal disease?: No Does the patient have liver disease?: No Does the patient have a history of stroke?: No Has the patient had major bleeding or predisposition to bleeding?: Yes Does the patient have labile INRs?: Yes Is the patient over 65 years of age?: Yes Is the patient on medications that gives them a predisposition to bleeding?: Yes Does the patient use alcohol?: Yes HAS-BLED Score: 6 CHADSVASC Age: 75 or over Gender: Male Does the patient have a history of CHF?: No Does the patient have a history of Hypertension?: Yes Does the patient have a history of Stroke/TIA/Thromboembolism?: No Does the patient have a history of Vascular Disease (prior NC, PAD or aortic plaque)?: Yes Does the patient have a history of Diabetes?: No CHADS VACS Score: 4 Chin Prediction Score Rsk VTE Active Cancer: Yes Previous VTE, excluding superficial vein thrombosis: No Reduced mobility: No Already known Thrombophilic Condition: Yes With-in last month Trauma and/or Surgery: No Elderly 70 year or older: Yes Heart and/or Respiratory Failure: No Acute Myocardial infarction and/or Ischemic Stroke: No Acute Infection and/or Rheumatologic Disorder: No Obesity (BMI 30 or greater): No Ongoing Hormonal Treatment: No Score: 7 Chin Score less than 4; Low Risk of VTE Chin Score 4 or greater; High Risk of VTE Coding Level of Care Code Est Patient Level 1 Time Spent (min) 15
== END 2023-05-24 10:59 | disposition home or self-care (01) ==
LOC: HO.ACS 10:04
PROVIDERS: PCP Internal Medicine Medical Oncology; Visit Provider Internal Medicine
DX: Z79.01 Long term (current) use of anticoagulants (principal)

== ENCOUNTER → 2023-05-24 10:04 | Outpatient (BNVA) | payer MEDICARE, SELFPAY | PROVIDERS: PCP Internal Medicine Medical Oncology; Visit Provider Internal Medicine | DX: I48.20 Chronic atrial fibrillation, unspecified (principal); Z79.01 Long term (current) use of anticoagulants; Z51.81 Encounter for therapeutic drug level monitoring | CPT/HCPCS: 85610; 99211 ==

== ENCOUNTER 2023-05-27 16:14 | Emergency (ER) | payer MEDICARE, SELFPAY ==
--- NOTE | ~2023-05-27 | CT_ITS ---
EXAMINATION: CT HEAD WITHOUT CONTRAST CT CERVICAL SPINE WITHOUT CONTRAST CLINICAL INFORMATION: Reason for Exam Fall, neck tenderness, R/O fracture COMPARISON: None. TECHNIQUE: Imaging was performed from the skull base to vertex without intravenous administration of contrast. In addition, helical noncontrast CT imaging was acquired through the cervical spine and source images were reviewed along with axial reconstructions and sagittal and coronal MPRs. This CT examination was performed using dose optimization techniques as appropriate, variously including the following: *Automated exposure control. *Adjustment of mA and/or kV according to patient size (this includes techniques or standardized protocols for targeted exams where dose is matched to indication/reason for exam; i.e. extremities or head). *Use of iterative reconstruction technique. Total exam dose-length product 1069 mGy-cm FINDINGS: HEAD: Left frontal scalp hematoma is present without any underlying fracture. No intracranial mass, hemorrhage, or midline shift is visualized. The ventricles and sulci are unremarkable.. No extra-axial collections are identified. The paranasal sinuses and mastoid air cells are well aerated except for small intrasinus air-fluid level within the right maxillary sinus, given the history of recent trauma likely represent intrasinus hemorrhage and less likely to be acute sinusitis. CERVICAL SPINE: Multilevel moderate degenerative spondylosis related changes are present with most pronounced changes seen at mid cervical spine. Specific note is made of multifocal scattered sclerosis involving the visualized part of the upper thoracic spine and the entire cervical spine, most consistent with osteosclerotic metastatic disease. There is no evidence of acute cervical spine fracture. Vertebral bodies remain normal in height, and alignment is anatomic. No prevertebral or paravertebral soft tissue abnormality is identified. Limited assessment of the lung apices shows nonspecific groundglass airspace disease at left lung apex. CT/CT cervical spine wo IV con IMPRESSION: 1. Moderate-sized left frontal scalp hematoma without any underlying acute intracranial pathology or underlying skull fracture. Small air-fluid level within the right maxillary sinus likely represent intrasinus hemorrhage related to trauma and less likely to be acute sinusitis. 2. No CT evidence of acute cervical spine fracture or traumatic subluxation. 3. Multifocal osteosclerotic lesions throughout the entire visualized spine, highly suspicious for metastatic disease. 4. Indeterminate nonspecific groundglass airspace disease within the limited visualized left lung apex, not optimally characterized.
--- NOTE | ~2023-05-27 | CT_ITS ---
EXAMINATION: CT CHEST WITHOUT CONTRAST CLINICAL INFORMATION: History of fall, left rib pain. COMPARISON: None available. TECHNIQUE: Multidetector volumetric CT imaging of the chest was done. Axial MIP volume rendering provided. Sagittal and coronal reformatted images were obtained. This CT examination was performed using dose optimization techniques as appropriate, variously including the following: *Automated exposure control *Adjustment of mA and/or kV according to patient size (this includes techniques or standardized protocols for targeted exams where dose is matched to indication/reason for exam; i.e. extremities or head) *Use of iterative reconstruction technique DLP: 272.49 mGy-cm FINDINGS: GENERAL MERCHANDISE MANAGER: Multifocal sclerotic lesions are noted within the thoracic cage (left greater than right). LUNGS: Subtle groundglass airspace disease at left lung apex. Nonspecific bilateral lower lobar distal/subpleural reticular and peribronchiolar not airspace disease is present, may represent evolving fibrosis. Superimposed a few scattered micronodules are also noted at right upper as well as right middle lobe (for example 190:19 and 269:19). The tracheobronchial tree is patent. MEDIASTINUM: Moderate cardiomegaly is noted. AICD device is present. There are no pathologically enlarged morphologically abnormal lymphadenopathy within the mediastinum. CORONARY ARTERY CALCIFICATION: Dense coronary arterial calcifications. PLEURA: There is no pleural effusion. No pleural mass or thickening. No evidence of pneumothorax. AXILLA: No lymphadenopathy. UPPER ABDOMEN: Remarkable for prominent fluid containing structure seen within both renal sinuses most consistent with bilateral moderate hydroureteronephrosis. OSSEOUS STRUCTURES: Deformity involving left second through sixth ribs with most pronounced changes seen within the left fifth rib, consistent with acute fracture. Numerous sclerotic foci throughout the entire visualized skeleton is most consistent with osteosclerotic metastases. Please correlate clinically. Postop changes of sternotomy. CT/CT chest wo IV con IMPRESSION: 1. CT of the chest is remarkable for presence of left second through sixth ribs fractures without any underlying hemopneumothorax or lung contusion. 2. Note is however made of nonspecific cyst groundglass airspace disease at left lung apex and nonspecific predominantly subpleural, peripheral reticular/interstitial prominence at both lower lobes (left greater than right) and superimposed few micronodules, specifically at right upper and right middle lobe of the lung. 3. Moderate cardiomegaly and significant calcific atherosclerotic coronary arterial disease. 4. Remarkable for multifocal numerous osteosclerotic lesion throughout the entire visualized skeleton, highly suspicious for sclerotic metastases. Please correlate clinically. 5. Limited visualized partially included part of both kidneys show features highly suggestive of bilateral moderate hydroureteronephrosis, not optimally evaluated due to suboptimal inclusion on this CT of the chest. Fleischner guidelines were followed.
[2023-05-27 16:24] VITALS: BP 140/70; PULSE 70
[2023-05-27 16:25] VITALS: PULSE 61; RESP 18; TEMP 36.5; O2SAT 95; BMI 25.5
[2023-05-27 16:46] VITALS: BP 128/68; PULSE 77; RESP 18; TEMP 36.5; O2SAT 97
--- NOTE | 2023-05-27 16:46 | ECG_ITS ---
Test Reason : LOC Blood Pressure : / mmHG Vent. Rate : 062 BPM Atrial Rate : 037 BPM P-R Int : 000 ms QRS Dur : 148 ms QT Int : 498 ms P-R-T Axes : 000 203 051 degrees QTc Int : 505 ms Ventricular-paced rhythm Biventricular pacemaker detected Abnormal ECG When compared with ECG of 12-DEC-2004 08:11, Electronic ventricular pacemaker has replaced Sinus rhythm Referred By: Michael Huang Electronically Signed By:ED DESOUZA MD
--- NOTE | 2023-05-27 16:48 | ED.FALL ---
HPI - Fall General Chief Complaint: Fall Stated Complaint: FALL, CONTUSION ON TEMPORAL LOBE, +THINNERS Time Seen by Provider: 05/27/23 16:37 Source: patient Mode of arrival: EMS Limitations: no limitations History of Present Illness HPI Narrative: 88-year-old male history of chronic atrial fibrillation on warfarin therapy, mechanical aortic valve replacement, prostate cancer, anemia who presents emergency department for evaluation of a fall with head and chest injury. The patient states that he was eating at a restaurant with a friend. He states he walked out of the restaurant and then had no memory of falling. The patient remembers being surrounded by police and paramedics. Patient currently is complaining of left-sided chest pain but has no other complaints. The patient did strike his head and has a left frontal parietal hematoma with an abrasion. He also has a superficial abrasion to his right dorsal aspect of his hand and left pretibial area of his [place] with hematoma in this area. Patient denies headache, nausea, vomiting. He states that he has had a cough over the past 2 days with chronic shortness of breath. He denied fever, chills, rhinorrhea, sore throat, nausea, vomiting, dark stools or bloody stools He states that his INR was elevated, the blood work on 05/24/2023 revealed a PTT of 43.3 and an INR of 3.6. Patient states he has not changed his warfarin dose. Patient has no memory of the events, his son reports that the patient's friend noted the patient was feeling dizzy and needed help walking on the restroom, the friend went to get the car and when he came back the patient was on the ground. Paramedics reported that the patient fell from the bottom step at a restaurant. Related Data Home Medications Medication Instructions Recorded Confirmed aspirin 81 mg tablet,delayed 81 mg PO DAILY 01/23/21 05/24/23 release finasteride 5 mg tablet 5 mg PO DAILY 01/23/21 05/24/23 furosemide 20 mg tablet 20 mg PO DAILY 01/23/21 05/24/23 losartan 25 mg tablet 25 mg PO DAILY 01/23/21 05/24/23 omeprazole 20 mg capsule,delayed 20 mg PO DAILY 01/23/21 05/24/23 release pravastatin 10 mg tablet 10 mg PO DAILY 01/23/21 05/24/23 potassium chloride 10 mEq 10 meq PO DAILY 07/10/21 05/24/23 tablet,extended release(part/cryst) metoprolol succinate 50 mg 75 mg PO DAILY 05/07/22 05/24/23 tablet,extended release 24 hr amoxicillin 500 mg tablet 2,000 mg PO 05/27/22 05/24/23 leuprolide (3 month) 22.5 mg (3 22.5 mg subcut [id number] 11/19/22 05/24/23 month) subcutaneous syringe ([employer]) Previous Rx's Medication Instructions Recorded warfarin 2.5 mg tablet 2.5 mg PO DAILY #90 tabs 04/06/20 Allergies Allergy/AdvReac Type Severity Reaction Status Date / Time No Known Allergies Allergy Verified 05/27/23 16:48 Review of Systems Review of Systems: Yes all other systems are reviewed and are negative [facility] Past Medical History [facility] Narrative: Past medical history: Atrial fibrillation on warfarin. Social history: Patient states he lives alone. He denies tobacco use. He did have 3 drinks of alcohol with dinner. He denied drug use. Social History Alcohol intake: current Alcohol intake frequency: a few times a month Smoked in Last 30 Days: No Use of substances other than those prescribed or required for medical reasons: No Advance Directives: No Advance Directives Information Provided: Yes Physical Exam Vital Signs: Vital Signs: Last Vital Signs Temp 98.3 F 05/27/23 19:27 Pulse 60 05/27/23 20:00 Resp 15 05/27/23 20:00 BP 128/62 05/27/23 19:27 Pulse Ox 97 05/27/23 19:27 O2 Del Method Room Air 05/27/23 19:27 BMI result Body Mass Index 25.5 Vital signs were normal Exam: General: Awake, alert in no distress, in C-spine precautions Head: Normocephalic, patient has a 2 x 3 cm hematoma and abrasion to his left forehead/parietal area, this is tender to palpation EENT: PERRL, Lids normal, sclera normal, conjunctiva normal, nose normal , ears normal, throat without erythema or exudates Neck: Supple, no adenopathy, no trachea midline or C-spine tenderness Lung: breath sounds symmetric, no wheezing, rales or rhonchi Chest: symmetric movement, left-sided anterior lateral chest wall tenderness Heart: Irregular irregular rate and rhythm, normal S1, S2 no murmurs or rubs Abdomen: soft, non-tender, nondistended, normal bowel sounds Back: no vertebral tenderness, no CVAT Extremities: Patient has a small abrasion to the dorsal aspect of his right hand with an abrasion to the left pretibial area of the [place] with a hematoma in this area as well, SIRS tender to palpation Neuro: Awake, alert, oriented, normal speech, cranial nerves intact, moves all extremities symmetrically Psych: Pleasant, cooperative Medical Decision Making Medical Decision Making MDM Narrative: 88-year-old male history of mechanical aortic valve replacement, chronic atrial fibrillation on warfarin therapy, pacemaker (son reports better needs to be replaced), prostate cancer who presents emergency department for evaluation of a fall with head and chest injury. Patient has no memory of the fall pain. On examination he did have a hematoma to his left forehead with abrasion as well as abrasion to his right hand, abrasion to his left pretibial area with hematoma. Patient also had left-sided chest wall tenderness with no neck tenderness. Patient was taken out of C-spine precautions. Following evaluation was ordered: CBC, CMP, PT/INR, PTT, CT scan of the head, cervical spine and chest. 21:24 My interpretation patient's laboratory evaluation as follows: Anemia with an H&H of 8.6 and 27.7 with a normal MCV. Rectal exam revealed brown stool which was Hemoccult negative. Patient's BUN creatinine are elevated 31 and 2.14-I do not have any baseline labs on the patient. CT scan of the head and neck did not reveal any acute fractures, radiologist did note the external hematoma but no intracranial bleed. CT scan of the chest did reveal left rib fractures 2nd through 6th (5 ribs) with no hemothorax or pneumothorax. There were 2 incidental findings, radiologist felt that the patient may have metastatic bone disease and bilateral hydronephrosis. I ordered normal saline IV x1 L and a Horvath catheter to be placed to rule out obstruction. I did discuss the patient's rib fractures with our covering surgeon Dr. Ronquillo who felt that given the patient's age and rib fractures, the patient should be transferred to a trauma center. I did discuss the patient with the covering trauma surgeon at [facility], Dr. Mooney and the patient will be transferred as an ED to ED transfer. Patient will be transferred via ALS ambulance. Differential Diagnosis Differential Diagnoses: The differential diagnosis associated with the presentation includes Differential diagnosis includes was not limited to skull fracture, intracranial bleed, left-sided rib fractures, pneumothorax, hemothorax, anemia, electrolyte abnormalities, alcohol intoxication Admission/Observation Consideration of admission/observation: Escalation of care including admission/observation considered Consult Healthcare Provider Management of the patient was discussed with: Supervisor Sewing Department Lab Data ILIANA Lab Attestation statement: I reviewed the patient's lab results. Please see ILIANA above her my interpretation 05/27/23 17:08 05/27/23 17:08 Labs: Lab Results 05/27/23 Range/Units 17:08 WBC 10.4 (4.8-10.8) X10*3/uL RBC 3.07 L (4.60-5.80) X10*6/uL Hgb 8.6 L (14.0-18.0) g/dl Hct 27.7 L (42.0-52.0) % MCV 90.2 (80.0-98.0) fL MCH 28.0 (27.0-33.0) pg MCHC 31.0 (31.0-36.0) g/dl RDW 16.1 H (11.0-16.0) % Plt Count 269 (160-400) X10*3/uL MPV 10.0 (9.4-12.4) fL Immature Gran % (Auto) 2.6 H (0.0-0.4) % Neut % (Auto) 74.6 H (45-73) % Lymph % (Auto) 13.4 L (20-40) % [place] % (Auto) 7.5 (2-11) % Eos % (Auto) 1.5 (0-4) % Baso % (Auto) 0.4 (0-2) % Lymph # (Auto) 1.4 (1.2-4.9) X10*3/uL [place] # (Auto) 0.8 (0.1-1.2) X10*3/uL Eos # (Auto) 0.2 (0.0-0.4) X10*3/uL Baso # (Auto) 0.0 (0.0-0.2) X10*3/uL Abs Immat Gran (auto) 0.27 H (0.00-0.03) X10*3/uL Absolute Neuts (auto) 7.7 (2.0-8.3) x10*3/uL Absolute Nucleated RBC 0.000 (0.0-0.012) X10*3/uL Nucleated RBC % (auto) 0.0 (0.0-0.2) /100WBC PT 27.6 H (11.1-13.3) SEC INR 2.3 H D (0.9-1.1) APTT 35.8 (26.0-36.4) SEC Sodium 139 (135-145) mmol/L Potassium 4.7 (3.3-5.1) mmol/L Chloride 106 (96-108) mmol/L Carbon Dioxide 23 (22-29) mmol/L Anion Gap 15 (12-20) BUN 31 H (9-16) mg/dL Creatinine 2.14 H (0.5-1.4) mg/dL Estim Creat Clear Calc 25.1 Estimated GFR 29 Random Glucose 113 (60-115) mg/dL Calcium 9.2 (8.4-10.2) mg/dL Total Bilirubin 0.4 (0.0-1.0) mg/dL AST 22 (5-37) U/L ALT 11 (0-40) U/L Alkaline Phosphatase 97 (39-117) U/L Total Creatine Kinase 121 (38-174) U/L Troponin I High Sens 13.0 (<3.5-35.0) ng/L Total Protein 7.9 (6.5-8.0) g/dL Albumin 3.4 L (3.5-5.0) g/dL Ethyl Alcohol 63 mg/dL Independent Interpretation I performed an independent interpretation of an: EKG Interpretation: My independent interpretation patient's 12 EKG done at 17:15 hours is as follows: Paced rhythm with a rate of 62. Radiology Impression Discussion of test interpretation with radiology: I have reviewed the radiologist's reading. Radiologist Impression: CT head/brain wo IV con CERVICAL SPINE: Multilevel moderate degenerative spondylosis related changes are present with most pronounced changes seen at mid cervical spine. Specific note is made of multifocal scattered sclerosis involving the visualized part of the upper thoracic spine and the entire cervical spine, most consistent with osteosclerotic metastatic disease. There is no evidence of acute cervical spine fracture. Vertebral bodies remain normal in height, and alignment is anatomic. No prevertebral or paravertebral soft tissue abnormality is identified. Limited assessment of the lung apices shows nonspecific groundglass airspace disease at left lung apex. IMPRESSION: 1. Moderate-sized left frontal scalp hematoma without any underlying acute intracranial pathology or underlying skull fracture. Small air-fluid level within the right maxillary sinus likely represent intrasinus hemorrhage related to trauma and less likely to be acute sinusitis. 2. No CT evidence of acute cervical spine fracture or traumatic subluxation. 3. Multifocal osteosclerotic lesions throughout the entire visualized spine, highly suspicious for metastatic disease. 4. Indeterminate nonspecific groundglass airspace disease within the limited visualized left lung apex, not optimally characterized. Dictated By: Rasheed Pena MD CT chest wo IV con IMPRESSION: 1. CT of the chest is remarkable for presence of left second through sixth ribs fractures without any underlying hemopneumothorax or lung contusion. 2. Note is however made of nonspecific cyst groundglass airspace disease at left lung apex and nonspecific predominantly subpleural, peripheral reticular/interstitial prominence at both lower lobes (left greater than right) and superimposed few micronodules, specifically at right upper and right middle lobe of the lung. 3. Moderate cardiomegaly and significant calcific atherosclerotic coronary arterial disease. 4. Remarkable for multifocal numerous osteosclerotic lesion throughout the entire visualized skeleton, highly suspicious for sclerotic metastases. Please correlate clinically. 5. Limited visualized partially included part of both kidneys show features highly suggestive of bilateral moderate hydroureteronephrosis, not optimally evaluated due to suboptimal inclusion on this CT of the chest. Fleischner guidelines were followed. Dictated By: Rasheed Pena MD Critical Care Time Critical Care Time Critical Care Time: Yes Total Critical Care Time: 45 Attestation: Critical Care: The patient was critically ill with a high probability of imminent or life threatening deterioration. I spent greater than 30 minutes of discontinuous time evaluating the patient,delivering critical care at the bedside, discussing and evaluating pertinent data with consultants. Critical care time does not include time spent performing separately billable procedures or teaching. Total time spent performing critical care was 45 minutes. Discharge Plan Discharge Clinical Impression: Multiple rib fractures involving four or more ribs, Bone lesion, Bilateral hydronephrosis, Anemia Syncope Qualifiers: Encounter type: initial encounter Fall down stairs Qualifiers: Encounter type: initial encounter Qualified Code(s): W10.8XXA - Fall (on) (from) other stairs and steps, initial encounter Closed head injury Qualifiers: Encounter type: initial encounter Qualified Code(s): S09.90XA - Unspecified injury of head, initial encounter Hematoma of frontal scalp Qualifiers: Encounter type: initial encounter Qualified Code(s): S00.03XA - Contusion of scalp, initial encounter Patient Disposition: [facility] Transfer Details: ED to ED transfer [facility] Trauma Service Prescriptions: No Action warfarin 2.5 mg tablet 2.5 mg PO DAILY Qty: 90 0RF Protocol: Dose Management Condition: Wednesday (Week One) Dose/Route: 1.25 mg Instruction: 0.5 x 2.5 mg tablets Condition: Wednesday Dose/Route: 0 mg Instruction: 0 tablets Condition: Wednesday Dose/Route: 2.5 mg Instruction: 1 x 2.5 mg tablet Condition: Wednesday Dose/Route: 2.5 mg Instruction: 1 x 2.5 mg tablet Condition: Dose/Route: 2.5 mg Instruction: 1 x 2.5 mg tablet Condition: Wednesday Dose/Route: 2.5 mg Instruction: 1 x 2.5 mg tablet Condition: Wednesday Dose/Route: 2.5 mg Instruction: 1 x 2.5 mg tablet Condition: Wednesday (Week Two) Dose/Route: 1.25 mg Instruction: 0.5 x 2.5 mg tablets Condition: Wednesday Dose/Route: 2.5 mg Instruction: 1 x 2.5 mg tablet Condition: Wednesday Dose/Route: 2.5 mg Instruction: 1 x 2.5 mg tablet Condition: Wednesday Dose/Route: 2.5 mg Instruction: 1 x 2.5 mg tablet Condition: Dose/Route: 2.5 mg Instruction: 1 x 2.5 mg tablet Condition: Wednesday Dose/Route: 2.5 mg Instruction: 1 x 2.5 mg tablet Condition: Wednesday Dose/Route: 2.5 mg Instruction: 1 x 2.5 mg tablet Protocol Text: Adjustment Start Date: Wednesday05/24/23 INR Value: 3.6 INR Date: 05/24/23 Recheck Date: 06/07/23 Additional Instructions: INR is above range no warfarin today then resume usual dosing moderate green today, continue with boost shakes, balance greens and reds, watch the reds that raise over Thanksgiving Rx Instructions: 2.5MG DAILY EXCEPT 5MG EVERY TUES finasteride 5 mg tablet 5 mg PO DAILY pravastatin 10 mg tablet 10 mg PO DAILY furosemide 20 mg tablet 20 mg PO DAILY losartan 25 mg tablet 25 mg PO DAILY aspirin 81 mg tablet,delayed release (DR/EC) 81 mg PO DAILY omeprazole 20 mg capsule,delayed release(DR/EC) 20 mg PO DAILY amoxicillin 500 mg tablet 2,000 mg PO potassium chloride 10 mEq tablet,ER particles/crystals 10 meq PO DAILY metoprolol succinate 50 mg tablet extended release 24 hr 75 mg PO DAILY Martinez (3 month) 22.5 mg syringe 22.5 mg subcut [id number]
--- NOTE | 2023-05-27 16:57 | PC.NURSE ---
md [place] [facility] no iv. pt changed. hematoma to l forehead, tender ribs, abrasions/bruise to bilat le's and right arm.
[2023-05-27 17:11] LABS: MANUAL DIFF FLAG NO
[2023-05-27 17:15] LABS: Basophils Percent Auto 0.4 % (0-2); Eosinophils Absolute Auto 0.2 X10*3/uL (0.0-0.4); Eosinophils Percent Auto 1.5 % (0-4); Hematocrit 27.7 % (42.0-52.0); Hemoglobin 8.6 g/dl (14.0-18.0); Imm Gran Abs Auto 0.27 X10*3/uL (0.00-0.03); Imm Gran Pct Auto 2.6 % (0.0-0.4); Lymphocytes Absolute Auto 1.4 X10*3/uL (1.2-4.9); Lymphocytes Percent Auto 13.4 % (20-40); Mean Corpuscular Volume 90.2 fL (80.0-98.0); Monocytes Absolute Auto 0.8 X10*3/uL (0.1-1.2); Monocytes Percent Auto 7.5 % (2-11); Neutrophils Absolute Auto 7.7 x10*3/uL (2.0-8.3); Neutrophils Percent Auto 74.6 % (45-73); Platelet Count 269 X10*3/uL (160-400); Red Blood Count 3.07 X10*6/uL (4.60-5.80); Red Cell Distribution Width 16.1 % (11.0-16.0); White Blood Count 10.4 X10*3/uL (4.8-10.8)
[2023-05-27 17:26] LABS: Ethanol 63 mg/dL; INTERNATIONAL NORM RATIO 2.3 (0.9-1.1); Prothrombin Time 27.6 SEC (11.1-13.3)
[2023-05-27 17:28] LABS: Partial Thromboplastin Time 35.8 SEC (26.0-36.4)
[2023-05-27 17:31] LABS: Alanine Aminotransferase 11 U/L (0-40); Albumin Level 3.4 g/dL (3.5-5.0); Alkaline Phosphatase 97 U/L (39-117); Anion Gap 15 (12-20); Aspartate Amino Transferase 22 U/L (5-37); Bilirubin Total 0.4 mg/dL (0.0-1.0); Blood Urea Nitrogen 31 mg/dL (9-16); Calcium 9.2 mg/dL (8.4-10.2); Carbon Dioxide 23 mmol/L (22-29); Chloride 106 mmol/L (96-108); Creatinine Clr Calc Pharmacy 25.1; Estimated Glomerular Filt Rate 29; Glucose Random 113 mg/dL (60-115); Potassium 4.7 mmol/L (3.3-5.1); Sodium 139 mmol/L (135-145); Total Protein 7.9 g/dL (6.5-8.0)
[2023-05-27 18:00] VITALS: BP 130/67; PULSE 60; RESP 18; O2SAT 96
[2023-05-27 19:27] VITALS: BP 128/62; PULSE 60; RESP 14; TEMP 36.8; O2SAT 97
[2023-05-27 20:00] VITALS: PULSE 60; RESP 15
--- NOTE | 2023-05-27 20:40 | PC.NURSE ---
covid/rsv/flu swab sent
--- NOTE | 2023-05-27 21:02 | MHC.EDTECH ---
CALLED [facility] @2058 SPOKE W/ YAIR. WAITING CALL BACK FROM DOCTOR
--- NOTE | 2023-05-27 21:09 | MHC.EDTECH ---
[facility] CALLED BACK @2106 ACCEPTING PT. ACCEPTING PHYSICIAN
--- NOTE | 2023-05-27 21:23 | PC.NURSE ---
assumed care of pt.
[2023-05-27 21:36] LABS: OBS Int Ctl Valid YES; OBS1 NEGATIVE (NEGATIVE)
[2023-05-27] MEDS: 0.9 % Sodium Chloride 1,000 ML 999 ML IV (21:38)
[2023-05-27] MEDS: Morphine Sulfate 2 MG/ML CARTRIDGE IVPUSH (21:39)
[2023-05-27 21:40] LABS: Influenza A PCR NEGATIVE (Negative); Influenza B PCR NEGATIVE (Negative); Resp Syncy Virus RNA Qual PCR NEGATIVE (Negative); SARS COV2 PCR INHOUSE NEGATIVE (Negative)
--- NOTE | 2023-05-27 21:58 | PC.NURSE ---
[facility] Pt transfered [facility] EMS stretcher without complications.
[2023-05-27 22:01] LABS: Troponin-I High Sensitivity 17.5 ng/L (<3.5-35.0)
== END 2023-05-27 22:03 | disposition short-term general hospital (02) ==
PROVIDERS: Emergency Provider Emergency Medicine Emergency Medical Services; PCP Internal Medicine Medical Oncology
DX: R55 Syncope and collapse (principal); S09.90XA Unspecified injury of head, initial encounter; S00.03XA Contusion of scalp, initial encounter; W10.8XXA Fall (on) (from) other stairs and steps, initial encounter; R06.02 Shortness of breath; I48.20 Chronic atrial fibrillation, unspecified; D64.9 Anemia, unspecified; Z95.2 Presence of prosthetic heart valve; Z85.46 Personal history of malignant neoplasm of prostate; Z79.01 Long term (current) use of anticoagulants; Z79.82 Long term (current) use of aspirin; Z79.899 Other long term (current) drug therapy; Z79.02 Long term (current) use of antithrombotics/antiplatelets; Y93.89 Activity, other specified; Y92.511 Restaurant or cafe as the place of occurrence of the external cause; Y99.9 Unspecified external cause status; Z20.822 Contact with and (suspected) exposure to COVID-19; Z20.828 Contact with and (suspected) exposure to other viral communicable diseases
CPT/HCPCS: 0241U; 36415; 70450; 71250; 72125; 80053; 80307; 82272; 82550; 84484; 85025; 85610; 85730; 93005; 96374; 99285; J2270

== ENCOUNTER 2023-06-10 09:09 | Outpatient (AMB) | payer MEDICARE, SELFPAY ==
--- NOTE | 2023-06-10 09:30 | MHC.OFFVISCO ---
Intake Intake Visit Reasons: Anticoagulation Allergies No Known Allergies Allergy (Verified 06/10/23 09:24) Medication List - Last Reconciled 06/10/23 by Susana Pantoja RN amoxicillin 2,000 mg PO aspirin 81 mg PO DAILY finasteride 5 mg PO DAILY furosemide 20 mg PO DAILY leuprolide (3 month) (E[employer]) 22.5 mg subcut [id number] losartan 25 mg PO DAILY metoprolol succinate ER 75 mg PO DAILY omeprazole 20 mg PO DAILY potassium chloride ER 10 mEq PO DAILY pravastatin 10 mg PO DAILY warfarin 2.5 mg See Protocol PO DAILY Nursing Note INR: 2.8- in therapeutic range of 2-3 Medications and supplements reviewed No changes in health, diet, medications, or supplements, Denies any signs and symptoms of bleeding or bruising or clotting. Bleeding, bruising, clotting discussed Nutritional guidance given Dose: 2.5mg x 6, 1.25mg x 1 F/U INR: 2 weeks Patient verbalizes understanding of instructions given pt states s/p syncopal episode on gi- passed out , went to [facility] and was inpatient for [address] scan of head was neg. ecchymosis left temporal area fading. 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
[2023-06-10 09:31] LABS: Prothrombin Time Whole Bld POC 33.6 sec (11.1-13.5); ~PT, ~INR - Anti Coag Clinic 2.8 (0.9-1.1)
== END 2023-06-10 09:38 | disposition home or self-care (01) ==
LOC: HO.ACS 09:09
PROVIDERS: PCP Internal Medicine Medical Oncology; Visit Provider Internal Medicine
DX: Z79.01 Long term (current) use of anticoagulants (principal)

== ENCOUNTER → 2023-06-10 09:09 | Outpatient (BNVA) | payer MEDICARE, SELFPAY | PROVIDERS: PCP Internal Medicine Medical Oncology; Visit Provider Internal Medicine | DX: I48.20 Chronic atrial fibrillation, unspecified (principal); Z79.01 Long term (current) use of anticoagulants; Z51.81 Encounter for therapeutic drug level monitoring | CPT/HCPCS: 85610; 99211 ==

== ENCOUNTER 2023-06-24 09:30 | Outpatient (AMB) | payer MEDICARE, SELFPAY ==
[2023-06-24 09:41] LABS: Prothrombin Time Whole Bld POC 39.3 sec (11.1-13.5); ~PT, ~INR - Anti Coag Clinic 3.3 (0.9-1.1)
--- NOTE | 2023-06-24 09:56 | MHC.OFFVISCO ---
Intake Intake Visit Reasons: Anticoagulation Allergies No Known Allergies Allergy (Verified 06/24/23 09:31) Medication List - Last Reconciled 06/24/23 by Barbara Donaldson RN amoxicillin 2,000 mg PO aspirin 81 mg PO DAILY finasteride 5 mg PO DAILY furosemide 20 mg PO DAILY gabapentin mg PO leuprolide (3 month) (Martinez) 22.5 mg subcut [id number] losartan 25 mg PO DAILY metoprolol succinate ER 75 mg PO DAILY omeprazole 20 mg PO DAILY oxycodone 5 mg PO BID PRN potassium chloride ER 10 mEq PO DAILY pravastatin 10 mg PO DAILY warfarin 2.5 mg See Protocol PO DAILY Nursing Note INR 3.3 out of therapeutic range Medications and supplements reviewed Patient status: FEELING MUCH BETTER Medications or supplements: NO CHANGES Diet: BETTER Denies any signs and symptoms of bleeding or clotting or unusual bruising Bleeding, bruising, clotting discussed Nutritional guidance given: REVIEW FOOD LIST WEEKLY, GREENS TODAY BLUEBERRY AND SAURKRAUT HELP BLADDER AND BLOOD, Dose: KEEP SAME DOSE F/U INR Date : 2 WEEKS?? Patient verbalizing understanding of instructions given. 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
== END 2023-06-24 10:04 | disposition home or self-care (01) ==
LOC: HO.ACS 09:30
PROVIDERS: PCP Internal Medicine Medical Oncology; Visit Provider Internal Medicine
DX: Z79.01 Long term (current) use of anticoagulants (principal)

== ENCOUNTER → 2023-06-24 09:30 | Outpatient (BNVA) | payer MEDICARE, SELFPAY | PROVIDERS: PCP Internal Medicine Medical Oncology; Visit Provider Internal Medicine | DX: I48.20 Chronic atrial fibrillation, unspecified (principal); Z79.01 Long term (current) use of anticoagulants; Z51.81 Encounter for therapeutic drug level monitoring | CPT/HCPCS: 85610; 99211 ==

== ENCOUNTER 2023-07-08 09:36 | Outpatient (AMB) | payer MEDICARE, SELFPAY ==
--- NOTE | 2023-07-08 10:18 | MHC.OFFVISCO ---
Intake Intake Visit Reasons: Anticoagulation Allergies No Known Allergies Allergy (Verified 07/08/23 10:01) Medication List - Last Reconciled 07/08/23 by Barbara Donaldson RN amoxicillin 2,000 mg PO aspirin 81 mg PO DAILY finasteride 5 mg PO DAILY furosemide 20 mg PO DAILY leuprolide (3 month) (Eligard) 22.5 mg subcut [id number] losartan 25 mg PO DAILY metoprolol succinate ER 75 mg PO DAILY omeprazole 20 mg PO DAILY potassium chloride ER 10 mEq PO DAILY pravastatin 10 mg PO DAILY warfarin 2.5 mg See Protocol PO DAILY Nursing Note INR: 2.4 in therapeutic range Medications and supplements reviewed No changes in health, diet, medications, or supplements, Denies any signs and symptoms of bleeding or bruising or clotting. 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
== END 2023-07-08 10:19 | disposition home or self-care (01) ==
LOC: HO.ACS 09:36
PROVIDERS: PCP Internal Medicine Medical Oncology; Visit Provider Internal Medicine
DX: Z79.01 Long term (current) use of anticoagulants (principal)

== ENCOUNTER → 2023-07-08 09:36 | Outpatient (BNVA) | payer MEDICARE, SELFPAY | PROVIDERS: PCP Internal Medicine Medical Oncology; Visit Provider Internal Medicine | DX: I48.20 Chronic atrial fibrillation, unspecified (principal); Z79.01 Long term (current) use of anticoagulants; Z51.81 Encounter for therapeutic drug level monitoring | CPT/HCPCS: 85610; 99211 ==

== ENCOUNTER 2023-07-29 09:51 | Outpatient (AMB) | payer MEDICARE, SELFPAY ==
--- NOTE | 2023-07-29 10:02 | MHC.OFFVISCO ---
Intake Intake Visit Reasons: Anticoagulation Allergies No Known Allergies Allergy (Verified 07/29/23 09:58) Medication List - Last Reconciled 07/29/23 by Susana Pantoja RN amoxicillin 2,000 mg PO aspirin 81 mg PO DAILY finasteride 5 mg PO DAILY furosemide 20 mg PO DAILY leuprolide (3 month) (Eligard) 22.5 mg subcut [id number] losartan 25 mg PO DAILY metoprolol succinate ER 75 mg PO DAILY omeprazole 20 mg PO DAILY potassium chloride ER 10 mEq PO DAILY pravastatin 10 mg PO DAILY warfarin 2.5 mg See Protocol PO DAILY Nursing Note INR 1.8-? out of therapeutic range of 2-3 denies missed dose Medications and supplements reviewed Patient status: no c.o Medications or supplements: no changes Diet: same Denies any signs and symptoms of bleeding or clotting or unusual bruising Bleeding, bruising, clotting discussed Nutritional guidance given: no greens for 2 days, eat reds to raise Dose: 5mg today then cont 2.5mg x 6, 1.25mg x 1 F/U INR Date : 2 weeks? Patient verbalizing understanding of instructions given. 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
[2023-07-29 10:03] LABS: Prothrombin Time Whole Bld POC 21.4 sec (11.1-13.5); ~PT, ~INR - Anti Coag Clinic 1.8 (0.9-1.1)
== END 2023-07-29 10:10 | disposition home or self-care (01) ==
LOC: HO.ACS 09:51
PROVIDERS: PCP Internal Medicine Medical Oncology; Visit Provider Internal Medicine
DX: Z79.01 Long term (current) use of anticoagulants (principal)

== ENCOUNTER → 2023-07-29 09:51 | Outpatient (BNVA) | payer MEDICARE, SELFPAY | PROVIDERS: PCP Internal Medicine Medical Oncology; Visit Provider Internal Medicine | DX: I48.0 Paroxysmal atrial fibrillation (principal); Z79.01 Long term (current) use of anticoagulants; Z51.81 Encounter for therapeutic drug level monitoring | CPT/HCPCS: 85610; 99211 ==

== ENCOUNTER → 2023-08-12 09:33 | Outpatient (BNVA) | payer MEDICARE, SELFPAY | PROVIDERS: PCP Internal Medicine Medical Oncology; Visit Provider Internal Medicine | DX: I48.20 Chronic atrial fibrillation, unspecified (principal); Z79.01 Long term (current) use of anticoagulants; Z51.81 Encounter for therapeutic drug level monitoring | CPT/HCPCS: 85610; 99211 ==

== ENCOUNTER 2023-08-26 10:00 | Outpatient (AMB) | payer MEDICARE, SELFPAY ==
--- NOTE | 2023-08-26 10:35 | MHC.OFFVISCO ---
Intake Intake Visit Reasons: Anticoagulation Allergies No Known Allergies Allergy (Verified 08/26/23 10:14) Medication List - Last Reconciled 08/26/23 by Barbara Donaldson RN amoxicillin 2,000 mg PO aspirin 81 mg PO DAILY bicalutamide 50 mg PO DAILY finasteride 5 mg PO DAILY furosemide 20 mg PO DAILY leuprolide (3 month) (Eligard) 22.5 mg subcut [id number] losartan 25 mg PO DAILY metoprolol succinate ER 75 mg PO DAILY omeprazole 20 mg PO DAILY potassium chloride ER 10 mEq PO DAILY pravastatin 10 mg PO DAILY warfarin 2.5 mg See Protocol PO DAILY Nursing Note INR: 2.7 in therapeutic range Medications and supplements reviewed *S/P COMPLETION OF CIPRO 08/23/23 - HAS DELAYED ONSET *STARTED BICALUTIMIDE 08/24/23 CAN RAISE THE INR WITH DELAYED ONSET AND WITH RISK OF BLEEDING- WILL MONITOR INR FRQUENTLY ALSO ON ASPIRIN. STATES HE INCREASED GREENS AND ALSO ATE A LIVERWEURST SANDWICH RECENTLY Denies any signs and symptoms of bleeding or bruising or clotting. Bleeding, bruising, clotting discussed Nutritional guidance given - ENC TO KEEP UP WEEKLY GREENS DUE TO RECENT MEDS EFFECTING THE INR Dose: DECREASE WEEKLY DOSE 1.25MG X 2 DAYS / 2.5MG X 5 DAYS - MAY NEED TO LOWER MORE F/U INR: WEEKLY FOR SEVERAL WEEK Patient verbalizes understanding of instructions given Anti-Coag Initial Assessment Social Hx alcohol intake: current Alcohol intake frequency: a few times a month Coding Level of Care Code Est Patient Level 1 Diagnoses Current use of anticoagulant therapy Z79.01 Results AMB INR Fingerstick AMB INR Fingerstick 2.7 Last Edit by Barbara Donaldson RN on 08/26/23 10:28 Assessment & Plan Assessment & Plan (1) Current use of anticoagulant therapy: Code(s): Z79.01 - long-term (current) use of anticoagulants Category: Medical
[2023-08-26 16:07] LABS: Prothrombin Time Whole Bld POC 31.9 sec (11.1-13.5); ~PT, ~INR - Anti Coag Clinic 2.7 (0.9-1.1)
== END 2023-08-26 10:42 | disposition home or self-care (01) ==
LOC: HO.ACS 10:00
PROVIDERS: PCP Internal Medicine Medical Oncology; Visit Provider Internal Medicine
DX: Z79.01 Long term (current) use of anticoagulants (principal)

== ENCOUNTER → 2023-08-26 10:00 | Outpatient (BNVA) | payer MEDICARE, SELFPAY | PROVIDERS: PCP Internal Medicine Medical Oncology; Visit Provider Internal Medicine | DX: I48.20 Chronic atrial fibrillation, unspecified (principal); Z79.01 Long term (current) use of anticoagulants; Z51.81 Encounter for therapeutic drug level monitoring | CPT/HCPCS: 85610; 99211 ==

== ENCOUNTER 2023-09-02 10:12 | Outpatient (AMB) | payer MEDICARE, SELFPAY ==
[2023-09-02 10:43] LABS: Prothrombin Time Whole Bld POC 31.5 sec (11.1-13.5); ~PT, ~INR - Anti Coag Clinic 2.6 (0.9-1.1)
--- NOTE | 2023-09-02 10:50 | MHC.OFFVISCO ---
Intake Intake Visit Reasons: Anticoagulation Allergies No Known Allergies Allergy (Verified 09/02/23 10:37) Medication List - Last Reconciled 09/02/23 by Barbara Donaldson RN amoxicillin 2,000 mg PO aspirin 81 mg PO DAILY bicalutamide 50 mg PO DAILY finasteride 5 mg PO DAILY furosemide 20 mg PO DAILY leuprolide (3 month) (Eligard) 22.5 mg subcut [id number] losartan 25 mg PO DAILY metoprolol succinate ER 75 mg PO DAILY omeprazole 20 mg PO DAILY potassium chloride ER 10 mEq PO DAILY pravastatin 10 mg PO DAILY warfarin 2.5 mg See Protocol PO DAILY Nursing Note INR: 2.6 in therapeutic range Medications and supplements reviewed STARTED BICALUTAMIDE 08/24/23 - CAN HAVE A DELAYED ONSET Denies any signs and symptoms of bleeding or bruising or clotting. 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
== END 2023-09-02 10:52 | disposition home or self-care (01) ==
LOC: HO.ACS 10:12
PROVIDERS: PCP Internal Medicine Medical Oncology; Visit Provider Internal Medicine
DX: Z79.01 Long term (current) use of anticoagulants (principal)

== ENCOUNTER → 2023-09-02 10:12 | Outpatient (BNVA) | payer MEDICARE, SELFPAY | PROVIDERS: PCP Internal Medicine Medical Oncology; Visit Provider Internal Medicine | DX: I48.20 Chronic atrial fibrillation, unspecified (principal); Z79.01 Long term (current) use of anticoagulants; Z51.81 Encounter for therapeutic drug level monitoring | CPT/HCPCS: 85610; 99211 ==

== ENCOUNTER 2023-09-09 09:50 | Outpatient (AMB) | payer MEDICARE, SELFPAY ==
[2023-09-09 10:04] LABS: Prothrombin Time Whole Bld POC 32.5 sec (11.1-13.5); ~PT, ~INR - Anti Coag Clinic 2.7 (0.9-1.1)
--- NOTE | 2023-09-09 10:15 | MHC.OFFVISCO ---
Intake Intake Visit Reasons: Anticoagulation Allergies No Known Allergies Allergy (Verified 09/09/23 09:56) Medication List - Last Reconciled 09/09/23 by Radha Rudolph RN amoxicillin 2,000 mg PO aspirin 81 mg PO DAILY bicalutamide 50 mg PO DAILY finasteride 5 mg PO DAILY furosemide 20 mg PO DAILY leuprolide (3 month) (Eligard) 22.5 mg subcut [id number] losartan 25 mg PO DAILY metoprolol succinate ER 75 mg PO DAILY omeprazole 20 mg PO DAILY potassium chloride ER 10 mEq PO DAILY pravastatin 10 mg PO DAILY warfarin 2.5 mg See Protocol PO DAILY Nursing Note PT.STATES THAT HE FEELS WELL AND DENIES ANY CP,SOB OR SX OF BLEEDING. WILL CONTINUE PRESERNT DOSE AND FOLLOW-UP IN 2 WEEKS. \TO CALL [facility] IN MEANTIME IF ANY QUESTIONS/CONCERNS ARISE. GOOD UNDERSTANDING OF DOSING INSTR. 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
== END 2023-09-09 10:17 | disposition home or self-care (01) ==
LOC: HO.ACS 09:50
PROVIDERS: PCP Internal Medicine Medical Oncology; Visit Provider Internal Medicine
DX: Z79.01 Long term (current) use of anticoagulants (principal)

== ENCOUNTER → 2023-09-09 09:50 | Outpatient (BNVA) | payer MEDICARE, SELFPAY | PROVIDERS: PCP Internal Medicine Medical Oncology; Visit Provider Internal Medicine | DX: I48.20 Chronic atrial fibrillation, unspecified (principal); Z79.01 Long term (current) use of anticoagulants; Z51.81 Encounter for therapeutic drug level monitoring | CPT/HCPCS: 85610; 99211 ==

== ENCOUNTER 2023-09-24 09:54 | Outpatient (AMB) | payer MEDICARE, SELFPAY ==
[2023-09-24 10:06] LABS: Prothrombin Time Whole Bld POC 71.1 sec (11.1-13.5); ~PT, ~INR - Anti Coag Clinic 5.9 (0.9-1.1)
--- NOTE | 2023-09-24 10:27 | MHC.OFFVISCO ---
Intake Intake Visit Reasons: Anticoagulation Allergies No Known Allergies Allergy (Verified 09/24/23 09:58) Medication List - Last Reconciled 09/24/23 by Leonor Alatorre, RN amoxicillin 2,000 mg PO aspirin 81 mg PO DAILY bicalutamide 50 mg PO DAILY finasteride 5 mg PO DAILY furosemide 20 mg PO DAILY leuprolide (3 month) (Eligard) 22.5 mg subcut [id number] losartan 25 mg PO DAILY metoprolol succinate ER 75 mg PO DAILY omeprazole 20 mg PO DAILY potassium chloride ER 10 mEq PO DAILY pravastatin 10 mg PO DAILY warfarin 2.5 mg See Protocol PO DAILY Nursing Note Amb to [facility], noted unbalanced gait as amb into department, feeling tired color between pallor and slight jaundice Medications and supplements reviewed No changes in medications, or supplements sts appetite has decreased, has am nausea, no vomitting sts cough in the am like I have to cough something up but nothing comes up sts last CXR when hospitalized a couple months ago sts he does eat but when I feel like it Denies any unusual signs and symptoms of bruising, bleeding Denies any new Chest pain, SOB, or clotting INR: initial 5.9 critical high will have lab correlation TC to Dr Perez, spoke with Nneka WEEKS to report initial high INR, will be sending pt to lab, reported sxs and concerns and ?any other lab- do CBCd per Dr Perez will call office back with INR results and warfarin plan and any CBCd results 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 Time Spent (min) 30 Assessment & Plan Assessment & Plan (1) Current use of anticoagulant therapy: Code(s): Z79.01 - jail (current) use of anticoagulants Category: Medical Orders: Orders Complete Blood Count Auto Diff Today Z79. - manager presentation (current) use of anticoagulants Prothrombin Time INR Today Z79. - jail (current) use of anticoagulants
== END 2023-09-24 13:51 | disposition home or self-care (01) ==
LOC: HO.ACS 09:54
PROVIDERS: PCP Internal Medicine Medical Oncology; Visit Provider Internal Medicine
DX: Z79.01 Long term (current) use of anticoagulants (principal)

== ENCOUNTER 2023-09-24 09:54 | Outpatient (REF) | payer MEDICARE, SELFPAY ==
[2023-09-24 10:39] LABS: MANUAL DIFF FLAG NO
[2023-09-24 10:44] LABS: Basophils Percent Auto 0.2 % (0-2); Eosinophils Percent Auto 0.1 % (0-4); Hematocrit 30.8 % (42.0-52.0); Hemoglobin 9.8 g/dl (14.0-18.0); Imm Gran Abs Auto 0.09 X10*3/uL (0.00-0.03); Lymphocytes Absolute Auto 0.7 X10*3/uL (1.2-4.9); Lymphocytes Percent Auto 7.6 % (20-40); Mean Corpuscular HGB Conc 31.8 g/dl (31.0-36.0); Mean Corpuscular Hemoglobin 27.6 pg (27.0-33.0); Mean Corpuscular Volume 86.8 fL (80.0-98.0); Mean Platelet Volume 10.3 fL (9.4-12.4); Monocytes Absolute Auto 0.9 X10*3/uL (0.1-1.2); Monocytes Percent Auto 10.4 % (2-11); Neutrophils Absolute Auto 7.2 x10*3/uL (2.0-8.3); Neutrophils Percent Auto 80.7 % (45-73); Platelet Count 173 X10*3/uL (160-400); Red Blood Count 3.55 X10*6/uL (4.60-5.80)
[2023-09-24 10:54] LABS: Prothrombin Time 67.9 SEC (11.1-13.3)
[2023-09-24 10:56] LABS: INTERNATIONAL NORM RATIO 5.6 (0.9-1.1)
== END 2023-09-24 09:55 | disposition home or self-care (01) ==
LOC: HO.LAB 09:54
PROVIDERS: PCP Internal Medicine Medical Oncology; Visit Provider Internal Medicine
DX: I48.20 Chronic atrial fibrillation, unspecified (principal); Z79.01 Long term (current) use of anticoagulants; Z51.81 Encounter for therapeutic drug level monitoring
CPT/HCPCS: 36415; 85025; 85610; 99212

== ENCOUNTER 2023-09-27 10:46 | Outpatient (AMB) | payer MEDICARE, SELFPAY ==
[2023-09-27 11:10] LABS: Prothrombin Time Whole Bld POC 51.8 sec (11.1-13.5); ~PT, ~INR - Anti Coag Clinic 4.3 (0.9-1.1)
--- NOTE | 2023-09-27 11:21 | MHC.OFFVISCO ---
Intake Intake Visit Reasons: Anticoagulation Allergies No Known Allergies Allergy (Verified 09/27/23 11:04) Medication List - Last Reconciled 09/27/23 by Barbara Donaldson RN amoxicillin 2,000 mg PO aspirin 81 mg PO DAILY bicalutamide 50 mg PO DAILY finasteride 5 mg PO DAILY furosemide 20 mg PO DAILY leuprolide (3 month) (Eligard) 22.5 mg subcut [id number] losartan 25 mg PO DAILY metoprolol succinate ER 75 mg PO DAILY omeprazole 20 mg PO DAILY potassium chloride ER 10 mEq PO DAILY pravastatin 10 mg PO DAILY warfarin 2.5 mg See Protocol PO DAILY Nursing Note INR 4.3 out of therapeutic range Medications and supplements reviewed Patient status: He has a decreased appetite - states some foods just dont appeal to him any more, enc soft easy digestible foods - he said those sound good, he has upcoming labs for PCP, skin tone pale and ? if slight yellowing -and appearing more tiered than usual- will call PCP Medications or supplements: no changes Diet: fair Denies any signs and symptoms of bleeding or clotting or unusual bruising Bleeding, bruising, clotting discussed Nutritional guidance given: weekly cooked greens lower INR more than raw and easier to digest Dose: hold today then decrease weekly dose 1.25mg x 4 days/ 2.5mg x 3 days F/U INR Date: this Wednesday10/01/23?? Patient verbalizing understanding of instructions given. t/c to PCP with pt status - spoke with MICKY Morales to convey concerns to PCP Anti-Coag Initial Assessment Social Hx alcohol intake: current Alcohol intake frequency: a few times a month Coding Level of Care Code Est Patient Level 1 Diagnoses Current use of anticoagulant therapy Z79.01 Results AMB INR Fingerstick AMB INR Fingerstick 4.3 Last Edit by Barbara Donaldson RN on 09/27/23 11:16 MANUAL ENTRY Assessment & Plan Assessment & Plan (1) Current use of anticoagulant therapy: Code(s): Z79.01 - jail (current) use of anticoagulants Category: Medical
== END 2023-09-27 11:32 | disposition home or self-care (01) ==
LOC: HO.ACS 10:46
PROVIDERS: PCP Internal Medicine Medical Oncology; Visit Provider Internal Medicine
DX: Z79.01 Long term (current) use of anticoagulants (principal)

== ENCOUNTER → 2023-09-27 10:46 | Outpatient (BNVA) | payer MEDICARE, SELFPAY | PROVIDERS: PCP Internal Medicine Medical Oncology; Visit Provider Internal Medicine | DX: I48.20 Chronic atrial fibrillation, unspecified (principal); Z79.01 Long term (current) use of anticoagulants; Z51.81 Encounter for therapeutic drug level monitoring | CPT/HCPCS: 85610; 99211 ==

== ENCOUNTER 2023-10-01 10:10 | Outpatient (AMB) | payer MEDICARE, SELFPAY ==
[2023-10-01 10:32] LABS: Prothrombin Time Whole Bld POC 44.8 sec (11.1-13.5); ~PT, ~INR - Anti Coag Clinic 3.7 (0.9-1.1)
--- NOTE | 2023-10-01 10:40 | MHC.OFFVISCO ---
Intake Intake Visit Reasons: Anticoagulation Allergies No Known Allergies Allergy (Verified 10/01/23 10:25) Medication List - Last Reconciled 10/01/23 by Barbara Donaldson RN amoxicillin 2,000 mg PO aspirin 81 mg PO DAILY bicalutamide 50 mg PO DAILY finasteride 5 mg PO DAILY furosemide 20 mg PO DAILY leuprolide (3 month) (Elipedrod) 22.5 mg subcut [id number] losartan 25 mg PO DAILY metoprolol succinate ER 75 mg PO DAILY omeprazole 20 mg PO DAILY potassium chloride ER 10 mEq PO DAILY pravastatin 10 mg PO DAILY warfarin 2.5 mg See Protocol PO DAILY Nursing Note Pt remains on Bicalutamide which can raise the INR which is most likely effecting his elevated INR along with decreased appetite INR 3.7 out of therapeutic range Medications and supplements reviewed Patient status: Pt appearing a little better today in color and in spirits, to have labs for Dr Perez and f/u appt today but ofice closed and r/s for 10/11/23 Medications or supplements: no changes Diet: fair but still goes out with friends Denies any signs and symptoms of bleeding or clotting or unusual bruising Bleeding, bruising, clotting discussed Nutritional guidance given: Review food list weekly, remember to have weekly greens Dose: hold today and decrease weekly dose 2.5mg x 2 days/ 1.25mg x 5 days F/U INR Date: 1 week?? Patient verbalizing understanding of instructions given. 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
== END 2023-10-01 10:46 | disposition home or self-care (01) ==
LOC: HO.ACS 10:10
PROVIDERS: PCP Internal Medicine Medical Oncology; Visit Provider Internal Medicine
DX: Z79.01 Long term (current) use of anticoagulants (principal)

== ENCOUNTER → 2023-10-01 10:10 | Outpatient (BNVA) | payer MEDICARE, SELFPAY | PROVIDERS: PCP Internal Medicine Medical Oncology; Visit Provider Internal Medicine | DX: I48.20 Chronic atrial fibrillation, unspecified (principal); Z79.01 Long term (current) use of anticoagulants; Z51.81 Encounter for therapeutic drug level monitoring | CPT/HCPCS: 85610; 99211 ==

== ENCOUNTER 2023-10-08 09:33 | Outpatient (AMB) | payer MEDICARE, SELFPAY ==
--- NOTE | 2023-10-08 09:56 | MHC.OFFVISCO ---
Intake Intake Visit Reasons: Anticoagulation Allergies No Known Allergies Allergy (Verified 10/08/23 09:52) Medication List - Last Reconciled 10/08/23 by Susana Pantoja RN amoxicillin 2,000 mg PO aspirin 81 mg PO DAILY bicalutamide 50 mg PO DAILY finasteride 5 mg PO DAILY furosemide 20 mg PO DAILY leuprolide (3 month) (Eligard) 22.5 mg subcut [id number] losartan 25 mg PO DAILY metoprolol succinate ER 75 mg PO DAILY omeprazole 20 mg PO DAILY potassium chloride ER 10 mEq PO DAILY pravastatin 10 mg PO DAILY warfarin 2.5 mg See Protocol PO DAILY Nursing Note INR: 3.0- in therapeutic range of 2-3 Medications and supplements reviewed No changes in health, diet, medications, or supplements, Denies any signs and symptoms of bleeding or bruising or clotting. 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
[2023-10-08 09:58] LABS: Prothrombin Time Whole Bld POC 35.8 sec (11.1-13.5)
== END 2023-10-08 10:07 | disposition home or self-care (01) ==
LOC: HO.ACS 09:33
PROVIDERS: PCP Internal Medicine Medical Oncology; Visit Provider Internal Medicine
DX: Z79.01 Long term (current) use of anticoagulants (principal)

== ENCOUNTER → 2023-10-08 09:33 | Outpatient (BNVA) | payer MEDICARE, SELFPAY | PROVIDERS: PCP Internal Medicine Medical Oncology; Visit Provider Internal Medicine | DX: I48.20 Chronic atrial fibrillation, unspecified (principal); Z79.01 Long term (current) use of anticoagulants; Z51.81 Encounter for therapeutic drug level monitoring | CPT/HCPCS: 85610; 99211 ==

== ENCOUNTER 2023-10-21 10:11 | Outpatient (REF) | payer MEDICARE, SELFPAY ==
[2023-10-21 11:05] LABS: Prothrombin Time 65.6 SEC (11.1-13.3)
[2023-10-21 11:07] LABS: INTERNATIONAL NORM RATIO 5.4 (0.9-1.1)
== END 2023-10-21 10:12 | disposition home or self-care (01) ==
LOC: HO.LAB 10:11
PROVIDERS: PCP Internal Medicine Medical Oncology; Visit Provider Internal Medicine
DX: I48.20 Chronic atrial fibrillation, unspecified (principal); Z51.81 Encounter for therapeutic drug level monitoring; Z79.01 Long term (current) use of anticoagulants
CPT/HCPCS: 36415; 85610; 99212

== ENCOUNTER 2023-10-21 10:11 | Outpatient (AMB) | payer MEDICARE, SELFPAY ==
--- NOTE | 2023-10-21 10:39 | MHC.OFFVISCO ---
Intake Intake Visit Reasons: Anticoagulation Allergies No Known Allergies Allergy (Verified 10/21/23 10:15) Medication List - Last Reconciled 10/21/23 by Leonor Agustin RN amoxicillin 2,000 mg PO aspirin 81 mg PO DAILY bicalutamide 50 mg PO DAILY finasteride 5 mg PO DAILY furosemide 20 mg PO DAILY leuprolide (3 month) (Eligard) 22.5 mg subcut [id number] losartan 25 mg PO DAILY metoprolol succinate ER 75 mg PO DAILY omeprazole 20 mg PO DAILY potassium chloride ER 10 mEq PO DAILY pravastatin 10 mg PO DAILY warfarin 2.5 mg See Protocol PO DAILY Nursing Note INR 6.0?out of therapeutic range of 2-3 Pt sent to lab for a Stat lab draw INR Medications and supplements reviewed: no changes Patient status: no changes Medications or supplements: no changes Diet: pt states he has no appetite Denies any signs and symptoms of bleeding or clotting or unusual bruising. Pt understands he is at an increased risk of bleeding and is he falls and hits his head, he should go to the ER. Nutritional guidance given: have a serving of greens today and tomorrow Dose: hold today and tomorrow F/U INR Date : 10/22/23?? Patient verbalizing understanding of instructions given. T/C to Dr Perez. Spoke to nurse Eliz and results, 6.0 then 5.4 given to her with plan to hold today and tomorrow. Pt agreed to re test tomorrow. Also mentioned to nurse about the frail state of the pt and concern for fall risk. 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
[2023-10-21 11:16] LABS: Prothrombin Time Whole Bld POC 72.6 sec (11.1-13.5)
== END 2023-10-21 11:26 | disposition home or self-care (01) ==
LOC: HO.ACS 10:11
PROVIDERS: PCP Internal Medicine Medical Oncology; Visit Provider Internal Medicine
DX: Z79.01 Long term (current) use of anticoagulants (principal)

== ENCOUNTER 2023-10-22 10:09 | Outpatient (AMB) | payer MEDICARE, SELFPAY ==
[2023-10-22 10:23] LABS: Prothrombin Time Whole Bld POC 67.7 sec (11.1-13.5); ~PT, ~INR - Anti Coag Clinic 5.6 (0.9-1.1)
--- NOTE | 2023-10-22 10:36 | MHC.OFFVISCO ---
Intake Intake Visit Reasons: Anticoagulation Allergies No Known Allergies Allergy (Verified 10/22/23 10:12) Medication List - Last Reconciled 10/22/23 by Leonor Agustin RN amoxicillin 2,000 mg PO aspirin 81 mg PO DAILY bicalutamide 50 mg PO DAILY finasteride 5 mg PO DAILY furosemide 20 mg PO DAILY leuprolide (3 month) (Eligard) 22.5 mg subcut [id number] losartan 25 mg PO DAILY metoprolol succinate ER 75 mg PO DAILY omeprazole 20 mg PO DAILY potassium chloride ER 10 mEq PO DAILY pravastatin 10 mg PO DAILY warfarin 2.5 mg See Protocol PO DAILY Nursing Note INR 5.6?out of therapeutic range 2-3 Medications and supplements reviewed: no changes Patient status: no changes Medications or supplements: no changes Diet: no appetite Denies any signs and symptoms of bleeding or clotting or unusual bruising Bleeding, bruising, clotting discussed. Pt aware he is at risk of bleeding as discussed at yesterday/s appt. Pt know to avoid activity that would increase risk of bleeding. Nutritional guidance given: to have foods that would raise the INR. Pt has no appetite. He will have a serving of ensure each day until he returns in 3 days. Dose: hold today and tomorrow, then 1.25mg Wednesday then re-test. F/U INR Date : 10/25/23?? Patient verbalizing understanding of instructions given. 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
== END 2023-10-22 10:46 | disposition home or self-care (01) ==
LOC: HO.ACS 10:09
PROVIDERS: PCP Internal Medicine Medical Oncology; Visit Provider Internal Medicine
DX: Z79.01 Long term (current) use of anticoagulants (principal)

== ENCOUNTER → 2023-10-22 10:09 | Outpatient (BNVA) | payer MEDICARE, SELFPAY | PROVIDERS: PCP Internal Medicine Medical Oncology; Visit Provider Internal Medicine | DX: I48.20 Chronic atrial fibrillation, unspecified (principal); Z51.81 Encounter for therapeutic drug level monitoring; Z79.01 Long term (current) use of anticoagulants | CPT/HCPCS: 85610; 99211 ==

== ENCOUNTER 2023-10-25 10:38 | Outpatient (AMB) | payer MEDICARE, SELFPAY ==
[2023-10-25 11:08] LABS: ~PT, ~INR - Anti Coag Clinic 3.2 (0.9-1.1)
--- NOTE | 2023-10-25 11:20 | MHC.OFFVISCO ---
Intake Intake Visit Reasons: Anticoagulation Allergies No Known Allergies Allergy (Verified 10/25/23 11:01) Medication List - Last Reconciled 10/25/23 by Barbara Donaldson RN amoxicillin 2,000 mg PO aspirin 81 mg PO DAILY bicalutamide 50 mg PO DAILY finasteride 5 mg PO DAILY furosemide 20 mg PO DAILY leuprolide (3 month) (Elipedrod) 22.5 mg subcut [id number] losartan 25 mg PO DAILY metoprolol succinate ER 75 mg PO DAILY omeprazole 20 mg PO DAILY potassium chloride ER 10 mEq PO DAILY pravastatin 10 mg PO DAILY warfarin 2.5 mg See Protocol PO DAILY Nursing Note INR 3.2?? out of therapeutic range Medications and supplements reviewed Patient status: he states PSA level extremely elevated- to receive Prostate med injection by urology, Medications or supplements: no other changes Diet: poor/ had 1 ensure- enc 1 daily or every other day Denies any signs and symptoms of bleeding or clotting or unusual bruising Bleeding, bruising, clotting discussed Nutritional guidance given: review food list weekly, try for at least 3 small meals daily to keep energy up and 1 ensure daily or every other day Dose: hold today then 1.25mg daily F/U INR Date : 1 week , has urology soon and cardiology appt today ?? Patient verbalizing understanding of instructions given. Anti-Coag Initial Assessment Social Hx alcohol intake: current Alcohol intake frequency: a few times a month Coding Level of Care Code Est Patient Level 1 Diagnoses Current use of anticoagulant therapy Z79.01 Results AMB INR Fingerstick AMB INR Fingerstick 3.2 Last Edit by Barbara Donaldson RN on 10/25/23 11:09 manual entry Assessment & Plan Assessment & Plan (1) Current use of anticoagulant therapy: Code(s): Z79.01 - care home (current) use of anticoagulants Category: Medical
== END 2023-10-25 11:24 | disposition home or self-care (01) ==
LOC: HO.ACS 10:38
PROVIDERS: PCP Internal Medicine Medical Oncology; Visit Provider Internal Medicine
DX: Z79.01 Long term (current) use of anticoagulants (principal)

== ENCOUNTER → 2023-10-25 10:38 | Outpatient (BNVA) | payer MEDICARE, SELFPAY | PROVIDERS: PCP Internal Medicine Medical Oncology; Visit Provider Internal Medicine | DX: I48.20 Chronic atrial fibrillation, unspecified (principal); Z51.81 Encounter for therapeutic drug level monitoring; Z79.01 Long term (current) use of anticoagulants | CPT/HCPCS: 85610; 99211 ==

== ENCOUNTER 2023-11-01 11:02 | Outpatient (AMB) | payer MEDICARE, SELFPAY ==
--- NOTE | 2023-11-01 11:17 | MHC.OFFVISCO ---
Intake Intake Visit Reasons: Anticoagulation Allergies No Known Allergies Allergy (Verified 11/01/23 11:17) Medication List - Last Reconciled 11/01/23 by Susana Pantoja RN amoxicillin 2,000 mg PO aspirin 81 mg PO DAILY bicalutamide 50 mg PO DAILY finasteride 5 mg PO DAILY furosemide 20 mg PO DAILY leuprolide (3 month) (Eligard) 22.5 mg subcut .q 6months metoprolol succinate ER 75 mg PO DAILY omeprazole 20 mg PO DAILY potassium chloride ER 10 mEq PO DAILY pravastatin 10 mg PO DAILY warfarin 2.5 mg See Protocol PO DAILY Nursing Note INR 3.1-?? out of therapeutic range of 2-3 Medications and supplements reviewed Patient status: pt c.o fatigue, amb with cane Medications or supplements: pt states no longer taking losartan Diet: varies, taking ensure 3x week, enc to take more if nec Denies any signs and symptoms of bleeding or clotting or unusual bruising Bleeding, bruising, clotting discussed Nutritional guidance given: eat greens today Dose: cont prev dosing 1.2mg x 6 F/U INR Date : 10 days? Patient verbalizing understanding of instructions given. Anti-Coag Initial Assessment Social Hx alcohol intake: current Alcohol intake frequency: a few times a month Coding Level of Care Code Est Patient Level 1 Diagnoses Current use of anticoagulant therapy Z79.01 Results AMB INR Fingerstick AMB INR Fingerstick 3.1 Last Edit by uSsana Pantoja RN on 11/01/23 11:25 Assessment & Plan Assessment & Plan (1) Current use of anticoagulant therapy: Code(s): Z79.01 - prison (current) use of anticoagulants Category: Medical
[2023-11-01 11:24] LABS: Prothrombin Time Whole Bld POC 36.7 sec (11.1-13.5); ~PT, ~INR - Anti Coag Clinic 3.1 (0.9-1.1)
== END 2023-11-01 11:32 | disposition home or self-care (01) ==
LOC: HO.ACS 11:02
PROVIDERS: PCP Internal Medicine Medical Oncology; Visit Provider Internal Medicine
DX: Z79.01 Long term (current) use of anticoagulants (principal)

== ENCOUNTER → 2023-11-01 11:02 | Outpatient (BNVA) | payer MEDICARE, SELFPAY | PROVIDERS: PCP Internal Medicine Medical Oncology; Visit Provider Internal Medicine | DX: I48.20 Chronic atrial fibrillation, unspecified (principal); Z51.81 Encounter for therapeutic drug level monitoring; Z79.01 Long term (current) use of anticoagulants | CPT/HCPCS: 85610; 99211 ==

== ENCOUNTER 2023-11-10 10:32 | Outpatient (AMB) | payer MEDICARE, SELFPAY ==
--- NOTE | 2023-11-10 10:42 | MHC.OFFVISCO ---
Intake Intake Visit Reasons: Anticoagulation Allergies No Known Allergies Allergy (Verified 11/10/23 10:35) Medication List - Last Reconciled 11/10/23 by Susana Pantoja RN amoxicillin 2,000 mg PO aspirin 81 mg PO DAILY bicalutamide 50 mg PO DAILY finasteride 5 mg PO DAILY furosemide 20 mg PO DAILY leuprolide (3 month) (Eligard) 22.5 mg subcut .q 6months metoprolol succinate ER 75 mg PO DAILY omeprazole 20 mg PO DAILY potassium chloride ER 10 mEq PO DAILY pravastatin 10 mg PO DAILY warfarin 2.5 mg See Protocol PO DAILY Nursing Note INR 3.2-? out of therapeutic range 2-3 Medications and supplements reviewed Patient status: pt states was at [facility] ed on 11/04/23 overnight, and again 11/07/23 for bleeding from buttocks area due to fecal incont and wiping. denies laxative or stool softner usage. 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 Patient verbalizing understanding of instructions given. Dr Perez called to discuss pt condition- he states pt had upper endoscopy at [facility]- aware of bleeding- pt instructed to call Dr Perez if bleeding cont. Dr Perez f/u appt 11/16/23- repeat call to Dr Perez- foul odor, ? GI - Dr Perez made aware of concerns- he states will see pt this week, ? 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
[2023-11-11 09:06] LABS: Prothrombin Time Whole Bld POC 38.4 sec (11.1-13.5); ~PT, ~INR - Anti Coag Clinic 3.2 (0.9-1.1)
== END 2023-11-10 11:29 | disposition home or self-care (01) ==
LOC: HO.ACS 10:32
PROVIDERS: PCP Internal Medicine Medical Oncology; Visit Provider Internal Medicine
DX: Z79.01 Long term (current) use of anticoagulants (principal)

== ENCOUNTER → 2023-11-10 10:32 | Outpatient (BNVA) | payer MEDICARE, SELFPAY | PROVIDERS: PCP Internal Medicine Medical Oncology; Visit Provider Internal Medicine | DX: I48.20 Chronic atrial fibrillation, unspecified (principal); Z79.01 Long term (current) use of anticoagulants; Z51.81 Encounter for therapeutic drug level monitoring | CPT/HCPCS: 85610; 99211 ==

== ENCOUNTER 2023-11-16 10:42 | Outpatient (AMB) | payer MEDICARE, SELFPAY ==
[2023-11-16 10:52] LABS: Prothrombin Time Whole Bld POC 52.9 sec (11.1-13.5); ~PT, ~INR - Anti Coag Clinic 4.4 (0.9-1.1)
--- NOTE | 2023-11-16 11:19 | MHC.OFFVISCO ---
Intake Intake Visit Reasons: Anticoagulation Allergies No Known Allergies Allergy (Verified 11/16/23 10:44) Medication List - Last Reconciled 11/16/23 by Barbara Donaldson RN amoxicillin 2,000 mg PO aspirin 81 mg PO DAILY bicalutamide 50 mg PO DAILY finasteride 5 mg PO DAILY furosemide 20 mg PO DAILY leuprolide (3 month) (Eligard) 22.5 mg subcut .q 6months metoprolol succinate ER 75 mg PO DAILY omeprazole 20 mg PO DAILY potassium chloride ER 10 mEq PO DAILY pravastatin 10 mg PO DAILY warfarin 2.5 mg See Protocol PO DAILY Nursing Note INR 4.4?? out of therapeutic range Medications and supplements reviewed Patient status: Came by w/c, appears light jaundice, has decreased appetite, stools are dark and resemble pudding, Medications or supplements: no changes Diet: poor - tried supplement drink - enc to keep Denies any signs and symptoms of bleeding or clotting or unusual bruising Bleeding, bruising, clotting discussed Nutritional guidance given: try to eat fruits and vegetables you tolerate, try greens today or ensure Dose: hold x 3 days then possibly start 1mg daily F/U INR Date:request VNA to check 11/19/23 or to see if pt able to clear warfarin due to jaudice ?? Patient verbalizing understanding of instructions given. 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
== END 2023-11-16 11:24 | disposition home or self-care (01) ==
LOC: HO.ACS 10:42
PROVIDERS: PCP Internal Medicine Medical Oncology; Visit Provider Internal Medicine
DX: Z79.01 Long term (current) use of anticoagulants (principal)

== ENCOUNTER → 2023-11-16 10:42 | Outpatient (BNVA) | payer MEDICARE, SELFPAY | PROVIDERS: PCP Internal Medicine Medical Oncology; Visit Provider Internal Medicine | DX: I48.20 Chronic atrial fibrillation, unspecified (principal); Z51.81 Encounter for therapeutic drug level monitoring; Z79.01 Long term (current) use of anticoagulants | CPT/HCPCS: 85610; 99211 ==

== ENCOUNTER → 2023-11-19 13:52 | Outpatient (BNVA) | payer MEDICARE, SELFPAY | PROVIDERS: PCP Internal Medicine Medical Oncology; Visit Provider Internal Medicine ==

== ENCOUNTER → 2023-11-23 12:56 | Outpatient (BNVA) | payer MEDICARE, SELFPAY | PROVIDERS: PCP Internal Medicine Medical Oncology; Visit Provider Internal Medicine ==